=== PATIENT | male | born 1965 | race Caucasian/White ===

== ENCOUNTER 2016-10-27 14:54 | Inpatient (IN) | payer OTHER ==
[~2016-10-27] VITALS: Ht 172.7 cm; Wt 165.9 kg
[2016-10-27] MEDS: CLOBETASOL 0.05% 15 GM OINT TOP SCH (00:45)
[~2016-10-27 14:54] MED LIST: ALBU8.5H3 INH; ASP81 PO; ATOR40TA68 PO; AZIT250T94 PO; CARV12.598 PO; CEPH-443 PO; CLOB15OI15 TOP; FURO40TA4 PO; IPRA4AER INHALATION; LISI40TA9 PO; METF-480 PO; MOME13HF IH; MONT10TA21 PO; MORP30TA3 PO; PRED20TA PO
[2016-10-27] MEDS ORDERED: SODIUM CHLORIDE 0.9% 1L BAG IV* STA (15:19)
[2016-10-27] MEDS ORDERED: CEFEPIME 2GM/50 ML (PMX) 50 ML IVPB STA (15:19)
[2016-10-27] MEDS ORDERED: VANCOMYCIN 1 GM (PMX) 250 ML IVPB ONE (15:30)
--- NOTE | 2016-10-27 15:42 | RADRPT ---
PROCEDURE: CHEST 1VW CLINICAL INDICATION: Shortness of breath TECHNIQUE: Single frontal view of the chest was obtained COMPARISON: 10/12/2016 FINDINGS: The cardiac size is mildly enlarged, stable. Aortic vascular calcifications are demonstrated. There is mild pulmonary vascular congestion. The lungs are otherwise clear. No consolidation, effusion, or pneumothorax. Mild degenerative changes of the visualized osseous structures are visualized. IMPRESSION: 1. Stable mild cardiomegaly. 2. Atherosclerosis. RPTAT:PP .Emmanuel Royal MD, Date Time Electronically viewed and signed by .Emmanuel Royal MD, on 10/27/2016 15:41 .V/
[2016-10-27 15:48] LABS: EOSINOPHILS # 0.1 10^3/ul (0.0-0.5); EOSINOPHILS % 0.6 % (0.0-7.0); HEMOGLOBIN 9.7 g/dl (14.0-18.0); LYMPHOCYTES # 0.5 10^3/ul (0.8-2.9); MEAN CORPUSCULAR HEMOGLOBIN 22.5 pg (29.0-33.0); MEAN CORPUSCULAR HGB CONC 31.1 g/dl (32.0-37.0); MEAN CORPUSCULAR VOLUME 72.3 fl (82.0-101.0); MEAN PLATELET VOLUME 9.8 fl (7.4-10.4); MONOCYTE # 0.7 10^3/ul (0.3-0.9); MONOCYTES % 4.8 % (0.0-11.0); NEUTROPHIL # 12.6 10^3/ul (1.6-7.5); NEUTROPHILS % 90.6 % (39.0-77.0); PLATELET COUNT 130 10^3/UL (140-440); RED BLOOD COUNT 4.29 10^6/ul (4.70-6.10); UNCORRECTED WBC 13.9 10^3/ul (4.8-10.8); WHITE BLOOD COUNT 13.9 10^3/ul (4.8-10.8)
[2016-10-27 15:51] LABS: CONDITION 1; LH ANALYZER COMMENTS 1; SUSPECT 1
[2016-10-27 16:03] LABS: INR 0.97; PROTIME 12.9 Sec (12.2-14.2)
[2016-10-27 16:04] LABS: PARTIAL THROMBOPLASTIN TIME 30.9 Sec (25.0-35.0)
[2016-10-27 16:06] LABS: ALBUMIN 3.4 g/dl (3.3-4.9)
[2016-10-27 16:09] LABS: ALBUMIN/GLOBULIN RATIO 1.13; BILIRUBIN,INDIRECT 0.2 mg/dl (0-1.1); BILIRUBIN,TOTAL 0.2 mg/dl (0.2-1.3); CREATININE 8.6 mg/dl (0.61-1.24); TOTAL PROTEIN 6.4 g/dl (6.1-8.1)
[2016-10-27 16:10] LABS: CALCIUM 8.4 mg/dl (8.4-10.2)
[2016-10-27 16:17] LABS: TROPONIN-I 0.04 ng/ml (0.00-0.12)
--- NOTE | 2016-10-27 17:23 | ERA ---
ER Documentation Chief Complaint Date/Time DATE: 10/27/16 TIME: 17:19 Chief Complaint pt have flu symptoms and hypotension HPI This a 51-year-old male who was recently admitted to the hospital for pneumonia. The patient's been discharged for a week. Patient had a home health nurse come check on him yesterday and told him his blood pressure was low and again today was low as well. The patient states he is no longer coughing or have any pneumonia symptoms. He says he feels generally weak but has had diarrhea daily once or twice for the past 7 days. He has had no diarrhea today. He has no chest pain or shortness of breath or cough. Says he has a slight mid abdominal pain at the end of inspiration at times but not now. No back pain. The patient also says that he was told his kidney function is not good. He says he still making urine but very little. ROS All systems reviewed and are negative except as per history of present illness. Medications Home Meds Active Scripts Albuterol/Ipratropium* (Combivent Respimat*) 20-100 Mcg/Inh - 4 Gm Aer.w.adap, 1 PUFF INHALATION QID, #1 INHALER Prov:SUSY RAHMAN MD 10/13/16 Metformin* (Glucophage*) 850 Mg Tablet, 850 MG PO WITH BREAKFAST DINNE, #60 TAB Prov:SUSY RAHMAN MD 10/13/16 Furosemide* (Furosemide*) 40 Mg Tablet, 40 MG PO BID, #60 TAB Prov:SUSY RAHMAN MD 10/13/16 Carvedilol* (Coreg*) 12.5 Mg Tablet, 12.5 MG PO BID, #60 TAB Prov:SUSY RAMHAN MD 10/13/16 Aspirin (Aspirin) 81 Mg Chew, 81 MG PO DAILY, #30 TAB Prov:SUSY RAHMAN MD 10/13/16 Reported Medications Morphine Sulfate (Morphine Sulfate ER) 30 Mg Tablet.er, 30 MG PO Q4 Y for PRN, TAB 10/05/16 Atorvastatin* (Atorvastatin*) 40 Mg Tablet, 40 MG PO QHS, #30 TAB 10/05/16 Mometasone-Formoterol (Dulera) 200-5 Mcg/Inh - 13 Gm Hfa.aer.ad, 2 PUFFS IH BID Y for SHORTNESS OF BREATH, EA 06/03/15 Albuterol Sulfate* (Proair HFA*) 8.5 Gm Hfa.aer.ad, 2 PUFF INH BID Y for WHEEZING AND SOB, INH 06/03/15 Montelukast Sodium* (Singulair*) 10 Mg Tablet, 10 MG PO HS, TAB 06/03/15 Lisinopril* (Lisinopril*) 40 Mg Tablet, 40 MG PO DAILY, TAB 06/03/15 Clobetasol Propionate* (Clobetasol Propionate*) 15 Gm Oint, 1 APPLIC TOP BID, TUB 06/03/15 Discontinued Scripts Prednisone* (Prednisone*) 20 Mg Tab, 20 MG PO BID, #14 TAB Prov:SUSY RAHMAN MD 10/13/16 Azithromycin* (Zithromax*) 250 Mg Tablet, 250 MG PO DAILY, #6 TAB Prov:SUSY RAHMAN MD 10/13/16 Cephalexin* (Keflex*) 500 Mg Capsule, 500 MG PO Q8, #15 CAP Prov:SUSY RAHMAN MD 10/13/16 Allergies Allergies: Coded Allergies: No Known Allergy (Verified , 10/05/16) PMhx/Soc History of Surgery: Yes (bi-lateral knee surgery) Anesthesia Reaction: No Hx Neurological Disorder: No Hx Respiratory Disorders: Yes (PULOMARY EMBOLISM) Hx Cardiac Disorders: Yes (HTN) Hx Psychiatric Problems: No Hx Miscellaneous Medical Probl: Yes (RENAL FAILURE ) Hx Alcohol Use: No Hx Substance Use: No Hx Tobacco Use: No Smoking Status: Never smoker FmHx Family History: No coronary disease Physical Exam Vitals Vital Signs Date Time Temp Pulse Resp B/P Pulse Ox O2 Delivery O2 Flow Rate FiO2 10/27/16 15:44 93 13 106/82 97 Nasal Cannula 4.0 10/27/16 15:26 Nasal Cannula 4 10/27/16 15:06 98.6 95 20 88/36 88 Physical Exam Const: Well-developed, well-nourished Head: Atraumatic, normocephalic Eyes: Normal Conjunctiva, PERRLA, EOMI, normal sclera, no nystagmus ENT: Normal External Ears, Nose and Mouth, moist mucus membranes. Neck: Full range of motion. No meningismus, no lymphadenopathy. Resp: Clear to auscultation bilaterally, no wheezing, rhonchi, rales Cardio: Regular rate and rhythm, no murmurs, S1 S2 present Abd: Soft, non tender x 4, non distended. Normal bowel sounds, no guarding or rebound, no pulsitile abdominal masses or bruits Skin: No petechiae or rashes, no ecchymosis , no maculopapular rash Back: No midline or flank tenderness Ext: No cyanosis, or edema, FROM x 4, normal inspection, neurovascularly intact x 4 Neur: Awake and alert, STR 5/5 x 4, sensation intact x 4, no focal findings, cerebellum intact Psych: Normal Mood and Affect Result Diagram: 10/27/16 1530 10/27/16 1530 Results 24 hrs Laboratory Tests Test 10/27/16 15:30 Activated Partial Thromboplast Time 30.9Sec Alanine Aminotransferase (ALT/SGPT) 39IU/L Albumin 3.4g/dl Albumin/Globulin Ratio 1.13 Alkaline Phosphatase 79IU/L Anion Gap 21 Aspartate Amino Transf (AST/SGOT) 12IU/L Basophils # 0.010^3/ul Basophils % 0.0% Blood Morphology Comment Blood Urea Nitrogen 102mg/dl Calcium Level 8.4mg/dl Carbon Dioxide Level 28mmol/L Chloride Level 95mmol/L Creatinine 8.60mg/dl Differential Comment AUTO w/SCAN Direct Bilirubin 0.00mg/dl Eosinophils # 0.110^3/ul Eosinophils % 0.6% Globulin 3.00g/dl Glucose Level 160mg/dl Hematocrit 31.0% Hemoglobin 9.7g/dl INR International Normalized Ratio 0.97 Indirect Bilirubin 0.2mg/dl Lactic Acid Level 1.3mmol/L Lymphocytes # 0.510^3/ul Lymphocytes % 4.0% Mean Corpuscular Hemoglobin 22.5pg Mean Corpuscular Hemoglobin Concent 31.1g/dl Mean Corpuscular Volume 72.3fl Mean Platelet Volume 9.8fl Monocytes # 0.710^3/ul Monocytes % 4.8% Neutrophils # 12.610^3/ul Neutrophils % 90.6% Nucleated Red Blood Cells # 0.010^3/ul Nucleated Red Blood Cells % 0.0/100WBC Platelet Count 93106^3/UL Potassium Level 5.0mmol/L Prothrombin Time 12.9Sec Prothrombin Time Ratio 1.0 Red Blood Count 4.2910^6/ul Red Cell Distribution Width 24.0% Sodium Level 139mmol/L Total Bilirubin 0.2mg/dl Total Protein 6.4g/dl Troponin I 0.040ng/ml White Blood Count 13.910^3/ul Current Medications Medications (Trade) Dose Ordered Sig/Yuki Route PRN Reason Start Time Stop Time Status Last Admin Dose Admin Sodium Chloride 5070 ml 5,070 ml BOLUS OVER 2 HOURS STAT IV* 10/27/16 15:19 10/27/16 15:21 DC 10/27/16 15:41 Cefepime HCl 50 ml @ 100 mls/hr ONCE STAT IVPB 10/27/16 15:19 10/27/16 15:48 DC 10/27/16 15:41 Vancomycin HCl (Vancocin) 250 ml @ 125 mls/hr ONCE ONCE IVPB 10/27/16 15:30 10/27/16 17:29 10/27/16 16:29 Procedures/MDM EKG: Rate/Rhythm: Normal sinus rhythm, right axis deviation, artifact QRS, ST, QT: NORMAL DC, QRS, QT] Impression: NORMAL EKG PROCEDURE: CHEST 1VW CLINICAL INDICATION: Shortness of breath TECHNIQUE: Single frontal view of the chest was obtained COMPARISON: 10/12/2016 FINDINGS: The cardiac size is mildly enlarged, stable. Aortic vascular calcifications are demonstrated. There is mild pulmonary vascular congestion. The lungs are otherwise clear. No consolidation, effusion, or pneumothorax. Mild degenerative changes of the visualized osseous structures are visualized. IMPRESSION: 1. Stable mild cardiomegaly. 2. Atherosclerosis. RPTAT:PP .Emmanuel Royal MD, Date Time Electronically viewed and signed by .Emmanuel Royal MD, on 10/27/2016 15:41 .V/ CC: MARC FRYE DO Initial blood pressure is 79/12. Patient was given aggressive IV fluids and current blood pressure is 110/72 Patient was noted to have a creatinine in the low eights currently last creatinine on October 13 was 0.97 Patient is in renal failure of uncertain etiology. No apparent pneumonia. We will admit to the hospital under panel for further workup. Critical Care: Time: 30 minutes Treatments/Evaluations: Close monitoring and treatment of unstable vital signs, cardiorespiratory, and neurologic status, while maintaining tight balance of fluid, respiratory, and cardiac interventions outside of dictated billable procedure. Departure Diagnosis: Primary Impression: Hypotension Qualified Code: I95.9 - Hypotension, unspecified hypotension type Additional Impression: Renal failure Condition: MARC Jett DO Oct 27, 2016 17:23
[2016-10-27] MEDS ORDERED: ONDANSETRON 4 MG INJ IV STA (17:26)
[2016-10-27] MEDS ORDERED: morphine 4 MG/ML VIAL IV STA (17:26)
[2016-10-27] MEDS ORDERED: ONDANSETRON 4 MG INJ IV PRN ×2 (17:30→19:00)
[2016-10-27] MEDS ORDERED: ACETAMINOPHEN 325 MG TAB PO PRN ×2 (17:30→19:00)
[2016-10-27 18:07] LABS: ADD UMIC YES; URINE BILIRUBIN (Dip) 1+ (NEGATIVE); URINE BLOOD (Dip) NEGATIVE (NEGATIVE); URINE COLOR YELLOW (YELLOW); URINE GLUCOSE (Dip) NEGATIVE (NEGATIVE); URINE KETONES (Dip) 15 (NEGATIVE); URINE LEUKOCYTE ESTERASE (Dip) TRACE (NEGATIVE); URINE NITRITE (Dip) NEGATIVE (NEGATIVE); URINE TOTAL PROTEIN (Dip) 4+ (NEGATIVE); URINE UROBILINOGEN (Dip) 0.2 E.U./dL (0.1-1.0)
[2016-10-27 18:26] LABS: ICTOTEST NEGATIVE (NEGATIVE)
[2016-10-27 18:27] LABS: BACTERIA,URINE MODERATE; SQUAMOUS EPITHELIAL CELL,UR MANY
[2016-10-27] MEDS ORDERED: ACETAMINOPHEN 650 MG SUPP PR PRN (19:00)
[2016-10-27] MEDS ORDERED: ALBUTEROL HFA 8 GM INHALER INH PRN (19:00)
[2016-10-27] MEDS ORDERED: NITROGLYCERIN (SL) 0.4 MG TAB SL PRN (19:00)
[2016-10-27] MEDS ORDERED: NACL 0.9% 3 ML SYG IV SCH (19:00)
[2016-10-27] MEDS ORDERED: morphine (ER) 30 MG TAB PO PRN (19:00)
[2016-10-27] MEDS ORDERED: HYDROCODONE/APAP (5/325) TAB PO PRN (19:00)
[2016-10-27] MEDS ORDERED: LORAZEPAM 0.5 MG TAB PO PRN (19:00)
[2016-10-27] MEDS: SOD CHLORIDE 0.9% 1,000 ML IV SCH ×2 (19:28)
[2016-10-27 19:50] LABS: CREATINE KINASE < 20 IU/L (23-200)
[2016-10-27 20:00] LABS: CK-MB 2.65 ng/ml (0.0-2.4); TROPONIN-I 0.039 ng/ml (0.00-0.12)
[2016-10-27] MEDS ORDERED: CEFTRIAXONE 1 GM/50 ML (PMX) 50 ML IVPB SCH (20:00)
--- NOTE | 2016-10-27 20:26 | CONS ---
DATE OF ADMISSION: 10/27/2016 DATE OF CONSULTATION: 10/27/2016 TYPE OF CONSULTATION: Infectious disease. REASON FOR CONSULTATION: Antibiotic management. HISTORY OF PRESENT ILLNESS: Simeon Sanders is a 51-year-old male who comes in with flu like symptoms and hypotension. The patient was recently admitted to the hospital for pneumonia and was discharge d a week ago. The patient was checked by his home health nurse, found to be hypotensive. He no billy len had a cough, but felt generally weak, has had diarrhea daily once or twice in the past 7 days, b ut no diarrhea today. He has some slight mid abdominal pain at the end of inspiration. No back robyn n. His past problems include: 1. History of renal failure. 2. Pulmonary emboli. 3. Hypertension. 4. Bilateral knee surgeries. On admission, his white count was 13.9, H and H of 9.7 and 31, platelet count 130,000. BUN and crea tinine 102/8.6, glucose of 160. PAST MEDICAL HISTORY AND OPERATIONS: As outlined. FAMILY HISTORY: Noncontributory. SOCIAL HISTORY: He does not smoke, drink, or abuse drugs. ALLERGIES: NONE TO PENICILLIN, SULFA, OR FOODS. MEDICATIONS: Per chart. REVIEW OF SYSTEMS: As per HPI. PHYSICAL EXAMINATION: GENERAL: The patient is a well-developed, well-nourished male, alert, responsive, in no acute distr ess. VITAL SIGNS: Stable. He is afebrile. SKIN: Without generalized rash or icterus. HEENT: Within normal limits. NECK: Supple. LYMPH NODES: None palpable. CHEST: Clear to P and A with decreased breath sounds at the bases. HEART: Without murmur or gallop. ABDOMEN: Soft, nontender without organosplenomegaly or masses. EXTREMITIES: Without cyanosis, clubbing, or edema. RECTAL AND GENITAL: Deferred. NEUROLOGIC: No focal neurological abnormality. DIAGNOSTIC DATA: A chest x-ray showed stable mild cardiomegaly and atherosclerosis. Microbiology i s pending. ASSESSMENT AND PLAN: The patient was begun on metronidazole for possible Clostridium difficile and was started on ceftriaxone, on vancomycin. He received vancomycin and cefepime and is currently on ceftriaxone in addition to inhalers. Blood cultures x2 were done. Urine culture was done. Clostri dium difficile was done. It would seem to me that cefepime would be a better choice than ceftriaxon e. I would continue the Flagyl. I will dictate my findings to the hospitalist. Dictated By: NAKIA TABARES MD, JD/RAFAT Conf#: [id number] DID#: [id number]
--- NOTE | 2016-10-27 21:13 | HP ---
DATE OF ADMISSION: 10/27/2016 CONSULTANTS: 1. Infectious Disease. 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 CHIEF COMPLAINT: Intractable nausea, vomiting and weakness. HISTORY OF PRESENT ILLNESS: This is a pleasant 51-year-old gentleman with past medical history of m orbid obesity, respiratory failure, COPD, chronic hypoxemia on home oxygen, essential hypertension w trish was recently admitted to [facility] on 10/05/2016 and was discharged on 016 with home health who has been complaining of having generalized weakness and diarrhea off and on and has been having worsening of his weakness for the past 2 days. Therefore, he presented to [facility] Emergency Room via EMS, where his vital signs were found to be blood pressure 88/36, temperature 98.6, pulse 95, respirations 20, oxygen saturation 88% for which he was placed on 4 L n aman cannula and at this time is 97%, although his renal panel was found to be severely dehydrated w ith BUN of 102, creatinine of 8.60. The patient's WBC was 13.9 although there is no sign of sepsis. His lactic acid is 1.3 and 0.8. His anion gap is 21. Nephrology was consulted from the course of the emergency room. The patient has been treated with 3 L of normal saline in the course of the em ergency room, morphine sulfate, Zofran, vancomycin and cefepime. At this time, the patient denies h aving any chest pain or shortness of breath. He continues to complain of having generalized weaknes s. He states that he has not been able to urinate since this morning, although he has been having o ff-and-on diarrhea. He denies having any fever, but he does have chills. No change in visual acuit y, diplopia, photophobia. No abdominal discomfort, nausea, vomiting. Positive for diarrhea. The d iarrhea is not foul smelling. No rash, no itchiness. No dysuria, hematuria, urgency, incontinence. No neck pain. No restricted range of motion in upper or lower extremities or any sick contact. T he patient states that a home health nurse visited him and he did have a blood test, he does not kno w the result of his blood test, and today because his blood pressure was found to be low, he was sen t to the emergency room at [facility]. PAST MEDICAL AND SURGICAL HISTORY: 1. History of recent hospitalization with hypoxic respiratory failure secondary to pneumonia. 2. Chronic obstructive pulmonary disease. 3. Chronic hypoxemia, home oxygen. 4. Recent diagnosis of acute renal insufficiency which resolved in the previous hospitalization. 5. Essential hypertension. 6. Morbid obesity. 7. Debility secondary to body habitus. 8. Dyslipidemia. 9. Diabetes mellitus. MEDICATIONS AT HOME: 1. ProAir HFA. 2. Combivent. 3. Aspirin 81 mg. 4. Lipitor 40 mg. 5. Carvedilol 12.5 mg. 6. Clobetasol cream. 7. Lasix 40 mg. 8. Lisinopril 40 mg. 9. Metformin 850 mg. 10. Dulera. 11. Singulair. 12. Morphine sulfate. SOCIAL HISTORY: Negative x3 for smoking, alcohol, illicit drugs. He lives at home with his family. FAMILY HISTORY: Noncontributory. REVIEW OF SYSTEMS: As above per HPI. Otherwise, 12 review of systems have been found to be negativ e. PHYSICAL EXAMINATION: VITAL SIGNS: Temperature 98.6, pulse 93, respirations 14. Blood pressure has been ranging between 79/52 to 106/82. Oxygen saturation 99% on 4 L via nasal cannula, which that's his average at home. GENERAL APPEARANCE: The patient is lying in bed comfortably without any distress. He is awake, alfredo rt, oriented. He is not using any accessory muscles for breathing. Body habitus is morbidly obese with BMI of 53.3. EYES, EARS, NOSE, THROAT: Conjunctivae and lids are normal. Pupils are normal. Extraocular normal . Hearing grossly normal. Lips, teeth and gums are normal. Oral mucosa mildly dry. NECK: Supple. Trachea is midline. No lymphadenopathy. RESPIRATORY: Effort is normal. Clear to auscultation bilaterally. CARDIOVASCULAR: Normal S1, S2. Regular rhythm and rate. No murmur, no bruits, no edema. Peripher al pulses, radial pulses are palpable. Capillary refill is normal. CHEST: Normal expansion of thorax during inspiration. GASTROINTESTINAL: Abdomen contour is morbidly obese, soft, nontender, not distended. Bowel sounds are distant secondary to body habitus. GENITOURINARY: Deferred. MUSCULOSKELETAL: Upper and lower extremities within normal limits. Full range of motion. No edema . NEUROLOGIC: Cranial nerves II-XII are grossly intact. PSYCHIATRIC: Normal judgment and insight. Alert, oriented x3. Mood and affect are normal. LABORATORY WORK AND IMAGING: WBC 13.9, hemoglobin 9.7, hematocrit 31.0, MCV 72.3, platelets 130. S odium 139, potassium 5.0, chloride 95, bicarbonate 28, BUN 102, creatinine 8.60, anion gap 21, gluco se 160, calcium 8.4. Lactic acid 1.3. LFTs all within normal limits. Urinalysis: Specific gravit y greater than ____, bilirubin greater than 1, leukocyte esterase trace, squamous epithelial cells m any, total protein greater than 4, bacteria moderate, RBC 10 to 25, WBC 5 to 10. Chest x-ray shows stable mild cardiomegaly, atherosclerosis. The patient's 2D echocardiogram on the previous hospitalization demonstrated normal left ventricle s ystolic function, normal left ventricle cavity size, mild concentric left ventricular hypertrophy, e jection fraction estimated at 60%, stage I diastolic dysfunction, overall normal right ventricular s ystolic function not well visualized, no significant valvular stenosis or regurgitation seen, normal pericardium, no significant pericardial effusion. ASSESSMENT AND PLAN: 1. Acute renal insufficiency. This is likely secondary to dehydration secondary to diarrhea. Neph rology has been consulted. The patient is status post bolus of IV fluid in the course of the emerge ncy room. Cornejo has been ordered to be placed, although patient at this time has refused. I had ex tensive talk with patient regarding Cornejo, and he has at this time agreed to proceed with the Cornejo. We will continue aggressive IV fluid, follow up nephrology recommendations. 2. Intractable diarrhea. Doubtful Clostridium difficile since patient was not sent home with any a ntibiotics. Will place the patient on Flagyl and ciprofloxacin. Will follow up stool culture. 3. Anemia of chronic disease. This may be secondary to renal insufficiency. Follow up iron panel. 4. Leukocytosis. This may be secondary to his diarrhea versus urinary tract infection. Infectious disease doctor has been consulted. The patient has been placed on Flagyl and Rocephin. Will follo w urine culture and sensitivity. 5. History of hypoxic ____. The patient has been placed on oxygen, breathing treatment. 6. Chronic obstructive pulmonary disease, stable on 4 L oxygen. Continue breathing treatment. No indication for steroid at this time. 7. For deep venous thrombosis prophylaxis, will place the patient on sequential compression devices . Refrain from using any pharmacologic DVT prophylaxis secondary to the patient's anemia and platel ets of 130. 8. Severe hypotension. This is likely secondary to severe dehydration. Place the patient on aggre ssive IV fluid and follow. The patient will be admitted to telemetry floor. We will continue to mo nitor patient closely. 9. History of essential hypertension. At this time, patient is hypotensive. We will hold all bloo d pressure medication, and when restarting blood pressure medication, will place on parameters. 10. History of diabetes mellitus. The patient's blood glucose is 160. Will hold metformin seconda ry to acute renal insufficiency, place the patient on insulin sliding scale, low-carbohydrate diet. 11. Will continue to monitor patient closely. Further recommendations, management and treatment as per clinical course. Total amount of time spent for evaluation of patient and admission workup was 40 minutes. Dictated By: SUSY HUTCHINSON/RAFAT Conf#: [id number] DID#: [id number]
[2016-10-27] MEDS ORDERED: NORepinephrine 8MG/250 ML (PMX 250 ML ONE (21:27)
[2016-10-27] MEDS ORDERED: CEFEPIME 1GM/50 ML (PMX) 50 ML IVPB SCH (22:00)
[2016-10-27] MEDS: NORepinephrine 8MG/250 ML (PMX 250 ML IV SCH (22:35)
[2016-10-27] MEDS: metroNIDAZOLE 500 MG/NS (PMX) 100 ML IVPB SCH (22:46)
[2016-10-27] MEDS: ATORVASTATIN 40 MG TAB PO SCH (22:59)
[2016-10-27] MEDS: MONTELUKAST 10 MG TAB PO SCH (22:59)
[2016-10-28] VITALS (23 sets, daily range): BP systolic 79–164; BP diastolic 44–94; PULSE 81–102; RESP 8–15; TEMP 98.4; Ht 172.7 cm; Wt 165.9 kg
[2016-10-28] MEDS: NORepinephrine 8MG/250 ML (PMX 250 ML IV SCH (00:41)
[2016-10-28] MEDS: SOD CHLORIDE 0.9% 1,000 ML IV SCH ×5 (02:19→19:08)
[2016-10-28 04:25] LABS: BASOPHILS % 0.2 % (0.0-2.0); EOSINOPHILS # 0.2 10^3/ul (0.0-0.5); EOSINOPHILS % 1.3 % (0.0-7.0); HEMOGLOBIN 9.7 g/dl (14.0-18.0); LYMPHOCYTES # 1.3 10^3/ul (0.8-2.9); LYMPHOCYTES % 8.9 % (15.0-51.0); MEAN CORPUSCULAR HEMOGLOBIN 22.2 pg (29.0-33.0); MEAN CORPUSCULAR HGB CONC 30.4 g/dl (32.0-37.0); MEAN CORPUSCULAR VOLUME 72.9 fl (82.0-101.0); MEAN PLATELET VOLUME 10.4 fl (7.4-10.4); MONOCYTE # 0.9 10^3/ul (0.3-0.9); MONOCYTES % 6.6 % (0.0-11.0); NEUTROPHIL # 11.9 10^3/ul (1.6-7.5); PLATELET COUNT 148 10^3/UL (140-440); RED BLOOD COUNT 4.39 10^6/ul (4.70-6.10); RED CELL DISTRIBUTION WIDTH 23.8 % (11.5-14.5); UNCORRECTED WBC 14.4 10^3/ul (4.8-10.8); WHITE BLOOD COUNT 14.4 10^3/ul (4.8-10.8)
[2016-10-28 04:28] LABS: CONDITION 1; LH ANALYZER COMMENTS 1
[2016-10-28 04:33] LABS: ALBUMIN 3.3 g/dl (3.3-4.9)
[2016-10-28 04:34] LABS: POTASSIUM 5.8 mmol/L (3.5-5.1)
[2016-10-28 04:36] LABS: BILIRUBIN,INDIRECT 0.2 mg/dl (0-1.1); BILIRUBIN,TOTAL 0.2 mg/dl (0.2-1.3); CREATININE 7.5 mg/dl (0.61-1.24)
[2016-10-28 04:37] LABS: CALCIUM 8.1 mg/dl (8.4-10.2); TOTAL PROTEIN 6.2 g/dl (6.1-8.1)
[2016-10-28 04:38] LABS: MAGNESIUM 2.1 mg/dl (1.7-2.5)
[2016-10-28 04:42] LABS: CREATINE KINASE < 20 IU/L (23-200)
[2016-10-28 04:44] LABS: IRON 86 ug/dl (35-150)
[2016-10-28 04:49] LABS: TROPONIN-I 0.026 ng/ml (0.00-0.12)
[2016-10-28 04:54] LABS: TOTAL IRON BINDING CAPACITY 246 ug/dl (241-421)
[2016-10-28] MEDS: metroNIDAZOLE 500 MG/NS (PMX) 100 ML IVPB SCH ×3 (05:33→21:08)
[2016-10-28 07:04] LABS: TROPONIN-I 0.03 ng/ml (0.00-0.12)
[2016-10-28 07:05] LABS: CK-MB 2.98 ng/ml (0.0-2.4)
[2016-10-28] MEDS: ASPIRIN 81 MG TAB PO SCH (08:21)
[2016-10-28] MEDS: CLOBETASOL 0.05% 15 GM OINT TOP SCH ×2 (09:33→21:08)
--- NOTE | 2016-10-28 10:16 | PN ---
Date/Time of Note Date/Time of Note DATE: 10/28/16 TIME: 10:11 Assessment/Plan VTE Prophylaxis VTE Prophylaxis Intervention: SCD's Assessment/Plan Chief Complaint/Hosp Course ASSESSMENT AND PLAN: 1. Acute renal insufficiency. This is likely secondary to dehydration secondary to diarrhea. Nephrology has been consulted. We will continue aggressive IV fluid, follow up nephrology recommendations. 2. Intractable diarrhea. Resolved, continue Flagyl and Rocephin. Will follow up stool culture. 3. Anemia of chronic disease. This may be secondary to renal insufficiency. Continue to monitor 4. Leukocytosis. This may be secondary to his diarrhea versus urinary tract infection. Infectious disease doctor has been consulted. Continue Flagyl and Rocephin. Will follow urine culture and sensitivity. 5. Sepsis with Severe hypotension. This is likely secondary to severe dehydration.Need of pressors, continue to monitor blood pressure, continue IV antibiotics and aggressive IV fluids 6. Chronic obstructive pulmonary disease, stable on 4 L oxygen. Continue breathing treatment. No indication for steroid at this time. 7. diabetes mellitus. The patient's blood glucose is 160. Will hold metformin secondary to acute renal insufficiency, place the patient on insulin sliding scale, low-carbohydrate diet. 9. History of essential hypertension. At this time, patient is hypotensive. We will hold all blood pressure medication, and when restarting blood pressure medication, will place on parameters. For deep venous thrombosis prophylaxis, will place the patient on sequential compression devices. Refrain from using any pharmacologic DVT prophylaxis secondary to the patient's anemia and platelets of 130. Will continue to monitor patient closely. Further recommendations, management and treatment as per clinical course. Continue to monitor in ICU Problems: Subjective 24 Hr Interval Summary Free Text/Dictation Patient has remained in the ER secondary to lack of ICU beds Denies of any chest pain or shortness of breath Denies of any abdominal discomfort He was placed on levophed secondary to hypotension and his blood pressure is stable at this time Exam/Review of Systems Vital Signs Vitals Vital Signs Date Time Temp Pulse Resp B/P Pulse Ox O2 Delivery O2 Flow Rate FiO2 10/28/16 08:57 98.4 90 14 135/57 98 Nasal Cannula 4.0 10/27/16 20:20 33 Intake and Output 10/27/16 10/27/16 10/28/16 15:00 23:00 07:00 Intake Total 3350 ml 100 ml Balance 3350 ml 100 ml Exam General: The patient is morbidly obese with BMI of 53, Not in acute distress. HEENT: Atraumatic, normocephalic. The pupils are equal and round . Neck: Supple with full range of motion. Chest: Normal expansion of the thorax during inspiration Lungs: Clear to auscultation bilaterally Heart: Normal S1-S2, Regular rhythm and rate. Abdomen: Soft , nontender, nondistended , bowel sounds are present. Extremities: Normal to inspection, no edema no cyanosis Neurologic: Normal mental status,The patient is awake, alert and oriented . Genitourinary: Cornejo in place Results Result Diagram: 10/28/16 0353 10/28/16 0353 Results 24 hrs Laboratory Tests Test 10/27/16 15:30 10/27/16 17:30 10/27/16 17:50 10/27/16 18:25 Activated Partial Thromboplast Time 30.9 Alanine Aminotransferase (ALT/SGPT) 39 Albumin 3.4 Albumin/Globulin Ratio 1.13 Alkaline Phosphatase 79 Anion Gap 21 H Aspartate Amino Transf (AST/SGOT) 12 L Basophils # 0.0 Basophils % 0.0 Blood Morphology Comment Blood Urea Nitrogen 102 H Calcium Level 8.4 Carbon Dioxide Level 28 Chloride Level 95 L Creatinine 8.60 H Differential Comment AUTO w/SCAN Direct Bilirubin 0.00 Eosinophils # 0.1 Eosinophils % 0.6 Globulin 3.00 Glucose Level 160 Hematocrit 31.0 #L Hemoglobin 9.7 #L INR International Normalized Ratio 0.97 Indirect Bilirubin 0.2 Lactic Acid Level 1.3 0.8 0.7 Lymphocytes # 0.5 L Lymphocytes % 4.0 L Mean Corpuscular Hemoglobin 22.5 L Mean Corpuscular Hemoglobin Concent 31.1 L Mean Corpuscular Volume 72.3 L Mean Platelet Volume 9.8 Monocytes # 0.7 Monocytes % 4.8 Neutrophils # 12.6 H Neutrophils % 90.6 H Nucleated Red Blood Cells # 0.0 Nucleated Red Blood Cells % 0.0 Platelet Count 130 #L Potassium Level 5.0 Prothrombin Time 12.9 Prothrombin Time Ratio 1.0 Red Blood Count 4.29 #L Red Cell Distribution Width 24.0 H Sodium Level 139 Total Bilirubin 0.2 Total Protein 6.4 Troponin I 0.040 White Blood Count 13.9 #H Urine Bacteria MODERATE Urine Bilirubin 1+ H Urine Clarity SLIGHTLY CLOUDY Urine Color YELLOW Urine Glucose NEGATIVE Urine Hemoglobin NEGATIVE Urine Ictotest NEGATIVE Urine Ketones 15 Urine Leukocyte Esterase TRACE H Urine Microscopic RBC 10-25 Urine Microscopic WBC 5-10 Urine Nitrite NEGATIVE Urine Specific [place] >=1.030 H Urine Squamous Epithelial Cells MANY Urine Total Protein 4+ H Urine Urobilinogen 0.2 E.U./dL Urine pH 5.0 Test 10/27/16 18:40 10/28/16 03:53 10/28/16 06:10 Creatine Kinase < 20 L < 20 L 21 L Creatine Kinase Index 14.2 Creatinine Kinase MB (Mass) 2.65 H 2.80 H 2.98 H Troponin I 0.039 0.026 0.030 Alanine Aminotransferase (ALT/SGPT) 37 Albumin 3.3 Alkaline Phosphatase 79 Anion Gap 22 H Aspartate Amino Transf (AST/SGOT) 11 L Basophils # 0.0 Basophils % 0.2 Blood Morphology Comment Blood Urea Nitrogen 99 H Calcium Level 8.1 L Carbon Dioxide Level 23 Chloride Level 102 Creatinine 7.50 H Direct Bilirubin 0.00 Eosinophils # 0.2 Eosinophils % 1.3 Ferritin 138.0 Glucose Level 150 Hematocrit 32.0 L Hemoglobin 9.7 L Indirect Bilirubin 0.2 Iron Level 86 Lactic Acid Level 0.7 Lymphocytes # 1.3 Lymphocytes % 8.9 L Magnesium Level 2.1 Mean Corpuscular Hemoglobin 22.2 L Mean Corpuscular Hemoglobin Concent 30.4 L Mean Corpuscular Volume 72.9 L Mean Platelet Volume 10.4 Monocytes # 0.9 Monocytes % 6.6 Neutrophils # 11.9 H Neutrophils % 83.0 H Nucleated Red Blood Cells # 0.0 Nucleated Red Blood Cells % 0.0 Percent Iron Saturation 35 Platelet Count 148 Potassium Level 5.8 H Red Blood Count 4.39 L Red Cell Distribution Width 23.8 H Sodium Level 141 Total Bilirubin 0.2 Total Iron Binding Capacity 246 Total Protein 6.2 White Blood Count 14.4 H Medications Medications Current Medications Sodium Chloride 1,000 ml @ 125 mls/hr Q8H IV Last administered on 10/28/16at 09:33; Admin Dose 125 MLS/HR; Start 10/27/16 at 17:21 Sodium Chloride (NS) 1,000 ml @ 80 mls/hr [id number] IV Last administered on at 08:21; Admin Dose 80 MLS/HR; Start 10/27/16 at 18:46 Lorazepam (Ativan) 0.5 mg Q8H PRN PO ANXIETY; Start 10/27/16 at 19:00 Ondansetron HCl (Zofran Inj) 4 mg Q6H PRN IV NAUSEA AND/OR VOMITING; Start at 19:00 Nitroglycerin (Nitroglycerin (Sl Tab) 0.4 Mg) 1 tab Q5M PRN SL CHEST PAIN; Start 10/27/16 at 19:00 Acetaminophen (Tylenol Tab) 650 mg Q6H PRN PO PAIN LEVEL 1-3 OR FEVER; Start 10/27/16 at 19:00 Acetaminophen (Tylenol Supp) 650 mg Q6H PRN [place] PAIN LEVEL 1-3 OR FEVER; Start 10/27/16 at 19:00 Acetaminophen/ Hydrocodone Bitart 1 tab 1 tab Q6H PRN PO PAIN LEVEL 4-6; Start 10/27/16 at 19:00 Metronidazole (Flagyl 500 Mg (Pmx)) 100 ml @ 100 mls/hr Q8 IVPB Last administered on 10/28/16at 05:33; Admin Dose 100 MLS/HR; Start 10/27/16 at 22: 00 Albuterol (Ventolin Hfa) 2 puff BID PRN INH WHEEZING AND SOB; Start 10/27/16 at 19:00 Aspirin (Aspirin) 81 mg DAILY PO Last administered on 10/28/16at 08:21; Admin Dose 81 MG; Start 10/28/16 at 09:00 Atorvastatin Calcium (Lipitor) 40 mg QHS PO Last administered on 10/27/16at 22: 59; Admin Dose 40 MG; Start 10/27/16 at 21:00 Clobetasol Propionate (Temovate 0.05% Oint) 1 applic BID TOP Last administered on 10/28/16at 09:33; Admin Dose 1 APPLIC; Start 10/27/16 at 21:00 Montelukast Sodium (Singulair) 10 mg HS PO Last administered on 10/27/16at 22: 59; Admin Dose 10 MG; Start 10/27/16 at 21:00 Miscellaneous Information 1 puff QID INHALATION ; Start 10/27/16 at 21:00; Status UNV Miscellaneous Information 2 puffs 2 puffs BID PRN IH SHORTNESS OF BREATH; Start 10/27/16 at 19:00; Status UNV Norepinephrine 250 ml @ 1.875 mls/ hr TITRATE IV Last administered on at 00:41; Admin Dose 26.25 MLS/HR; Start 10/27/16 at 22:00; Stop 10/29/16 at 00:00 Cefepime HCl (Maxipime 1gm/50 ml (Pmx)) 50 ml @ 100 mls/hr Q24H IVPB ; Start 10/28/16 at 16:00 SUSY RAHMAN MD Oct 28, 2016 10:15
[2016-10-28] MEDS: CEFEPIME 1GM/50 ML (PMX) 50 ML IVPB SCH (16:04)
[2016-10-28] MEDS: morphine (ER) 15 MG TAB PO PRN (16:23)
[2016-10-28] MEDS ORDERED: FLUCONAZOLE 200 MG TAB PO ONE (17:30)
--- NOTE | 2016-10-28 17:44 | QN ---
Documentation Comment [id number] consult PEPE WELSH MD Oct 28, 2016 17:44
--- NOTE | 2016-10-28 17:46 | PN ---
DATE: 10/28/2016 SUBJECTIVE: No acute events overnight. The patient is awake on Levophed drip; just a received morp rashmi shot for back pain. He is in no distress; no fevers. Temperature 98.4, pulse 92, respirations 14, blood pressure 92/45, saturation 98 on 4 L. WBC 14.4, H and H 9.7 and 32, platelets 148, neutr ophils 83; no bands. BUN 99, creatinine 7.50. MICROBIOLOGY: Urine culture growing gram-negative rods. Blood cultures remain negative. DIAGNOSTICS: Chest x-ray on admission revealed atherosclerosis. ANTIMICROBIALS Patient is on: 1. Flagyl. 2. Cefepime. PHYSICAL EXAMINATION GENERAL: This is a morbidly obese, middle-aged, man who is awake, in no distress. HEENT: Head atraumatic, normocephalic. Sclerae are anicteric. Buccal mucosa dry. NECK: Obese. CHEST: Rise symmetrical. Breath sounds diminished to bases. HEART: S1, S2. ABDOMEN: Soft, obese. Bowel tones hypoactive. EXTREMITIES: Bilateral edema. SKIN: Difficult to examine patient as he is in emergency bed at the emergency department; however, he has a significant fungal excoriation in his scrotum and possibly skin folds. ASSESSMENT 1. Severe sepsis with shock. 2. Gram-negative rods urinary tract infection. 3. Acute renal failure. 4. Fungal excoriation. 5. Anemia. 6. Morbid obesity. 7. History of coagulase-negative Staphylococcus bacteremia on previous admission, 10/05/2016, as we ll as Enterococcal urinary tract infection. 8. On and off diarrhea. PLAN: The patient is hemodynamically unstable requiring vasopressor support for low blood pressure. He is on cefepime and Flagyl. Pending final urine culture, pending stool for C diff but we will a dd Diflucan and topical nystatin to the regimen. Follow nephrology recommendations. Continue anti- aspiration measures and local wound care. Dictated By: CHEY HUYNH LASTING MACHINE OPERATOR for NAKIA TABARES MD NI/NTS Conf#: [id number] DID#: [id number]
[2016-10-28] MEDS ORDERED: NA POLYST SULFON 15 GM/60 ML BTL PO ONE (18:00)
[2016-10-28] MEDS: ATORVASTATIN 40 MG TAB PO SCH (21:08)
[2016-10-28] MEDS: MONTELUKAST 10 MG TAB PO SCH (21:08)
[2016-10-29] VITALS (64 sets, daily range): BP systolic 74–169; BP diastolic 29–106; PULSE 82–120; RESP 9–20
[2016-10-29 00:25] LABS: AADO2 Arterial 46.9 mmHg (7.0-24.0); Allen Test ACCEPTAB; Arterial Base Excess -3.5 mmol/L (-3.0-3); Arterial COHb 0.1 % (0.0-3.0); Arterial Fraction of Oxyhgb 95.4 % (93.0-99.0); Arterial HCO3 24.9 mmol/L (22.0-26.0); Arterial MetHb 0.2 % (0.0-1.5); Arterial Total Hemglobin 10.5 g/dl (12.0-18.0); Blood Gas IEPAP 20/8; Blood Gas PS 12; MODE MASK - BIPAP
[2016-10-29] MEDS: ALBUTEROL/IPRATROPIUM (NEB) 3 ML AMP HHN SCH ×4 (02:33→19:51)
[2016-10-29] MEDS: SOD CHLORIDE 0.9% 1,000 ML IV SCH ×3 (03:04→21:27)
--- NOTE | 2016-10-29 03:49 | CONS ---
DATE OF ADMISSION: 10/27/2016 DATE OF CONSULTATION: HISTORY OF PRESENT ILLNESS: The patient is a patient is a 51-year-old male, who has a history of hypoxic respiratory failure secondary to pneumonia and also COPD. The patient also has history of hyperkalemia, renal insufficiency, elevated troponin, history of hypertension and morbid obesity. The patient presented with respiratory insufficiency and abnormal laboratory data, and is being admitted for further management. PAST MEDICAL HISTORY: Positive for acute kidney injury, history of status post ventilator-dependent respiratory failure, history of CO2 narcosis, history of asthma, history of previous knee surgery, history of CHF, history of electrolyte imbalance. Patient's previous laboratory data done shows patient has a BUN of 49, creatinine 0.97 on 10/13/2016, now presents with abnormal LFT. ALLERGY HISTORY: NEGATIVE. FAMILY HISTORY: Noncontributory at this point. SOCIAL HISTORY: Cannot be obtained, as the patient is weak and sleepy. MEDICATION HISTORY: At home patient is on: 1. Albuterol. 2. Combivent. 3. Aspirin. 4. Lipitor. 5. Coreg. 6. Clobetasol 7. Lasix. 8. Lisinopril. 9. Metformin. 10. Mometasone 11. Singulair. 12. Morphine. CURRENT MEDICATIONS: Include: 1. Diflucan. 2. Cefepime. 3. Morphine. 4. Flagyl. 5. Norepinephrine 6. Lipitor. 7. Clobetasol. 8. Singulair. REVIEW OF SYSTEMS: Cannot be completely obtained. PHYSICAL EXAMINATION: GENERAL: The patient is an overweight, obese male. VITAL SIGNS: Pulse 82, blood pressure 146/101. HEENT: Head is atraumatic, normocephalic. Pupils equal, reactive to light. NECK: Supple. No JVD. Large neck. LUNGS: Poor respiratory effort, a few rhonchi. CARDIOVASCULAR: S1, S2 normal. ABDOMEN: Soft, obese, bowel sounds present, no palpable mass. EXTREMITIES: No cyanosis, clubbing. The patient has edema noted. DIAGNOSTIC DATA: WBC 14.4, hematocrit , platelet count of 148,000. Sodium 141 , potassium 5.9, BUN 99, creatinine 7.50. The patient had a chest x-ray done, shows stable mild cardiomegaly and atherosclerosis. IMPRESSION: 1. [id number]-[id number] kidney disease. 2. Hyperkalemia, possibly drug induced. 3. Doubt patient has obstructive uropathy. 4. Underlying acute tubular necrosis. 5. Respiratory insufficiency. 6. Patient has intractable diarrhea. 7. Prerenal azotemia. 8. Chronic obstructive pulmonary disease. 9. History of hypertension. 10. Diabetes mellitus. 11. Possible underlying diabetic nephropathy. PLAN: To obtain UA, urine creatinine, eosinophils, and sodium. Patient will have Kayexalate. Patient will have IV fluid. Electrolytes will be monitored. CATA inhibitor will be discontinued, as well as metformin. Thank you, Dr. Cloud, for kindly asking me to see this patient in nephrology consultation. Dictated By: PEPE RAMOS/RAFAT Conf#: [id number] DID#: [id number] MTDD
[2016-10-29 04:59] LABS: EOSINOPHILS # 0.1 10^3/ul (0.0-0.5); EOSINOPHILS % 1.2 % (0.0-7.0); HEMATOCRIT 29.6 % (42.0-52.0); HEMOGLOBIN 9.1 g/dl (14.0-18.0); LYMPHOCYTES # 0.9 10^3/ul (0.8-2.9); LYMPHOCYTES % 10.9 % (15.0-51.0); MEAN CORPUSCULAR HEMOGLOBIN 22.5 pg (29.0-33.0); MEAN CORPUSCULAR VOLUME 72.6 fl (82.0-101.0); MEAN PLATELET VOLUME 9.2 fl (7.4-10.4); MONOCYTES % 12.4 % (0.0-11.0); NEUTROPHIL # 6.3 10^3/ul (1.6-7.5); NEUTROPHILS % 75.5 % (39.0-77.0); PLATELET COUNT 132 10^3/UL (140-440); RED BLOOD COUNT 4.07 10^6/ul (4.70-6.10); RED CELL DISTRIBUTION WIDTH 23.5 % (11.5-14.5); UNCORRECTED WBC 8.4 10^3/ul (4.8-10.8); WHITE BLOOD COUNT 8.4 10^3/ul (4.8-10.8)
[2016-10-29] MEDS: NORepinephrine 8MG/250 ML (PMX 250 ML IV SCH (05:04)
[2016-10-29] MEDS: metroNIDAZOLE 500 MG/NS (PMX) 100 ML IVPB SCH ×3 (05:06→21:26)
[2016-10-29 05:12] LABS: CONDITION 1; LH ANALYZER COMMENTS 1
[2016-10-29 05:46] LABS: POTASSIUM 5.3 mmol/L (3.5-5.1)
[2016-10-29 05:48] LABS: CREATININE 3.23 mg/dl (0.61-1.24)
[2016-10-29 05:49] LABS: CALCIUM 8.7 mg/dl (8.4-10.2)
[2016-10-29 05:50] LABS: MAGNESIUM 1.8 mg/dl (1.7-2.5)
--- NOTE | 2016-10-29 08:46 | PN ---
Date/Time of Note Date/Time of Note DATE: 10/29/16 TIME: 08:41 Assessment/Plan VTE Prophylaxis VTE Prophylaxis Intervention: SCD's Lines/Catheters IV [facility] Type (from [facility] Peripheral IV Urinary Cath still in place: Yes (coude) Reason Cath still needed: other (indicate) (Patient not yet ambulatory remove mobile enough to use routine device) Assessment/Plan Problems: (1) Acute kidney insufficiency Status: Acute Comment: And had an elevated creatinine at the last visit that resolved. He has some issues going on with his kidneys that will need to be further evaluated however he is still in the acute phase now. Once his renal function stabilizes over the next 24-48 hours and we can perform some additional evaluations which will also need to be done for other issues please see the note regarding the adrenal mass (2) Sepsis associated hypotension Status: Acute Comment: With antibiotics is blood pressure parameters are improving is no longer on pressor support and sepsis syndrome is resolving. He had tachycardia hypotension and acute renal insufficiency decreased platelet count etc. (3) Mild diastolic dysfunction Status: Chronic Comment: This is noted and consistent with his morbid obesity and his sleep apnea. (4) Hyperlipidemia Status: Chronic Comment: He is on statin therapy for this at appropriate dosing Qualifiers: Hyperlipidemia type: pure hypercholesterolemia Qualified Code: E78.00 - Pure hypercholesterolemia (5) Essential hypertension Status: Chronic Comment: He is on appropriate treatment for this. (6) COPD with asthma Status: Chronic Comment: He is on his outpatient medical regimen. I am going to add in theophylline to assist with driving his breathing. Ideally weight loss would be beneficial for him however the BMI above 50 he is actually more of a candidate for bariatric surgery at a later date. Please note that his primary care physician is Dr. Annette Vila (7) Obstructive sleep apnea hypopnea, severe Status: Chronic Comment: Counseled to use his device during sleep hours (8) Adrenal mass, right Status: Chronic Comment: This will need a formal evaluation. It was identified in 2015 and has not been evaluated at all. (9) Diabetes mellitus type 2 in obese Status: Chronic (10) Anemia Status: Acute (11) Morbid obesity with BMI of 50.0-59.9, adult Status: Chronic Subjective 24 Hr Interval Summary Free Text/Dictation Patient states he wants to go home. Please note the patient and his daughter confirm that he has been nonambulatory for several weeks Constitutional: no complaints (Denies fevers chills or sweats) Eyes: no complaints ENT: no complaints Respiratory: no complaints (Denies wheezing shortness of breath chest pain) Cardiovascular: no complaints Gastrointestinal: no complaints (Reports no diarrhea although please see the admission notes) Genitourinary: no complaints Musculoskeletal: other (Complains of significant knee pain) Skin: no complaints Exam/Review of Systems Vital Signs Vitals Vital Signs Date Time Temp Pulse Resp B/P Pulse Ox O2 Delivery O2 Flow Rate FiO2 10/29/16 07:45 98 13 110/50 10/29/16 07:00 Nasal Cannula 10/29/16 05:44 95 4.0 10/29/16 04:00 98.7 10/29/16 03:00 30 Intake and Output 10/28/16 10/28/16 10/29/16 15:00 23:00 07:00 Intake Total 629.345 ml 1101.214 ml Output Total 1280 ml 1985 ml Balance -650.655 ml -883.786 ml Exam Morbidly obese male lying in bed not using his CPAP/BiPAP for sleep apnea Constitutional: alert, oriented Neck: non-tender, supple Respiratory: clear to auscultation, normal air movement Cardiovascular: nl pulses, regular rate and rhythm Gastrointestinal: nl liver, spleen, non-tender, soft Results Result Diagram: 10/29/1641910/29/16 0420 Results 24 hrs Laboratory Tests Test 10/28/16 23:40 10/29/16 04:20 Arterial Blood HCO3 24.9 Arterial Blood Base Excess -3.5 L Arterial Blood Oxygen Saturation 95.7 Osmel Test ACCEPTAB Arterial Blood Gas Puncture Site Right Radial Arterial Blood Carboxyhemoglobin 0.1 Arterial Blood Date Drawn 10/29/2016 12:10:54 AM Arterial Blood Methemoglobin 0.2 Arterial Blood pCO2 (Temp correct) 63.3 H Arterial Blood pH (Temp corrected) 7.213 *L Arterial Blood pO2 (Temp corrected) 92.6 Blood Gas A-a O2 Differential 46.9 H Blood Gas Actual Respiration Rate 14 Blood Gas Critical Value Read Back Joyce RIOS RN Blood Gas IPAP/EPAP Ratio 20/8 Blood Gas Modality MASK - BIPAP Blood Gas Notified Time 10/29/2016 12:25:05 AM Blood Gas Notified Whom MG Blood Gas Pressure Support 12 Blood Gas Respiration Rate 14.0 Blood Gas Specimen Source Blood arterial Blood Gas Temperature 37.0 Blood Gas Tidal Volume 540.0 FiO2 30.0 Oxyhemoglobin Percent 95.4 Total Hemoglobin 10.5 L Anion Gap 20 H Basophils # 0.0 Basophils % 0.0 Blood Morphology Comment Blood Urea Nitrogen 87 H Calcium Level 8.7 Carbon Dioxide Level 24 Chloride Level 106 Creatinine 3.23 #H Eosinophils # 0.1 Eosinophils % 1.2 Glucose Level 110 # Hematocrit 29.6 L Hemoglobin 9.1 L Lymphocytes # 0.9 Lymphocytes % 10.9 L Magnesium Level 1.8 Mean Corpuscular Hemoglobin 22.5 L Mean Corpuscular Hemoglobin Concent 31.0 L Mean Corpuscular Volume 72.6 L Mean Platelet Volume 9.2 Monocytes # 1.0 H Monocytes % 12.4 H Neutrophils # 6.3 Neutrophils % 75.5 Nucleated Red Blood Cells # 0.0 Nucleated Red Blood Cells % 0.0 Platelet Count 132 L Potassium Level 5.3 H Red Blood Count 4.07 L Red Cell Distribution Width 23.5 H Sodium Level 145 H White Blood Count 8.4 # Medications Medications Current Medications Sodium Chloride 1,000 ml @ 125 mls/hr Q8H IV Last administered on 10/29/16at 03:04; Admin Dose 125 MLS/HR; Start 10/27/16 at 17:21 Sodium Chloride (NS) 1,000 ml @ 80 mls/hr [id number] IV Last administered on at 19:08; Admin Dose 80 MLS/HR; Start 10/27/16 at 18:46 Lorazepam (Ativan) 0.5 mg Q8H PRN PO ANXIETY; Start 10/27/16 at 19:00 Ondansetron HCl (Zofran Inj) 4 mg Q6H PRN IV NAUSEA AND/OR VOMITING; Start at 19:00 Nitroglycerin (Nitroglycerin (Sl Tab) 0.4 Mg) 1 tab Q5M PRN SL CHEST PAIN; Start 10/27/16 at 19:00 Acetaminophen (Tylenol Tab) 650 mg Q6H PRN PO PAIN LEVEL 1-3 OR FEVER; Start 10/27/16 at 19:00 Acetaminophen (Tylenol Supp) 650 mg Q6H PRN [place] PAIN LEVEL 1-3 OR FEVER; Start 10/27/16 at 19:00 Acetaminophen/ Hydrocodone Bitart 1 tab 1 tab Q6H PRN PO PAIN LEVEL 4-6; Start 10/27/16 at 19:00 Metronidazole (Flagyl 500 Mg (Pmx)) 100 ml @ 100 mls/hr Q8 IVPB Last administered on 10/29/16 05:06; Admin Dose 100 MLS/HR; Start 10/27/16 at 22: 00 Albuterol (Ventolin Hfa) 2 puff BID PRN INH WHEEZING AND SOB; Start 10/27/16 at 19:00 Aspirin (Aspirin) 81 mg DAILY PO Last administered on 10/28/16 08:21; Admin Dose 81 MG; Start 10/28/16 at 09:00 Atorvastatin Calcium (Lipitor) 40 mg QHS PO Last administered on 10/28/16 21: 08; Admin Dose 40 MG; Start 10/27/16 at 21:00 Clobetasol Propionate (Temovate 0.05% Oint) 1 applic BID TOP Last administered on 10/28/16 21:08; Admin Dose 1 APPLIC; Start 10/27/16 at 21:00 Montelukast Sodium (Singulair) 10 mg HS PO Last administered on 10/28/16 21: 08; Admin Dose 10 MG; Start 10/27/16 at 21:00 Miscellaneous Information 1 puff QID INHALATION ; Start 10/27/16 at 21:00; Status UNV Miscellaneous Information 2 puffs 2 puffs BID PRN IH SHORTNESS OF BREATH; Start 10/27/16 at 19:00; Status UNV Cefepime HCl (Maxipime 1gm/50 ml (Pmx)) 50 ml @ 100 mls/hr Q24H IVPB Last administered on 10/28/16 16:04; Admin Dose 100 MLS/HR; Start 10/28/16 at 16: 00 Morphine Sulfate (Ms Contin (Er)) 15 mg BID PRN PO PAIN LEVEL 8-10 Last administered on 10/28/16 16:23; Admin Dose 15 MG; Start 10/28/16 at 16:00 Theophylline (Ethan-24) 200 mg DAILY PO ; Start 10/29/16 at 09:00; Status UNV PRIYANK TEE MD Oct 29, 2016 08:46
[2016-10-29] MEDS: CLOBETASOL 0.05% 15 GM OINT TOP SCH ×2 (09:00→21:26)
[2016-10-29 09:49] LABS: IRON 54 ug/dl (35-150)
[2016-10-29 09:58] LABS: TOTAL IRON BINDING CAPACITY 241 ug/dl (241-421)
[2016-10-29] MEDS ORDERED: SALMETEROL/FLUTICASONE 250/50 INHA INH PRN (10:30)
[2016-10-29] MEDS: ASPIRIN 81 MG TAB PO SCH (13:08)
[2016-10-29] MEDS: THEOPHYLLINE (SR) 200 MG CAPSR PO SCH (13:08)
--- NOTE | 2016-10-29 13:47 | CONS ---
Date/Time of Note Date/Time of Note DATE: 10/29/16 TIME: 13:29 Assessment/Plan Assessment/Plan Chief Complaint/Hosp Course ID PROGRESS NOTE TOTAL ABX DAY #3 : => Cefepime, Flagyl, Diflucan 24H INTERVAL SUMMARY * A/A/O, no fevers, feels much better, off pressors, WBC normalized * Urine culture = low bacterial colony counts Specimen: [id number] Status: Complete Delbert: 10/27/16 Rcvd: 10/27 Source: CATHE[facility] U Sp Descrip: Procedure Result Microbiology URINE CULTURE Final Organism 1 PROTEUS MIRABILIS COLONY COUNT <10,000 CFU/ml P. MIRAB M.I.C. RX --------- --- AMPICILLIN <=2 S CEFOTAXIME S CIPROFLOXACIN <=0.25 S GENTAMICIN <=1 S LEVOFLOXACIN <=0.12 S NITROFURANTOIN 128 R TOBRAMYCIN <=1 S TRIMETHOPRIM/SULFAMETHOXAZOLE <=20 S PHYSICAL EXAMINATION: [id number] yo M HEENT: Unremarkable NECK: Supple, trachea midline. CHEST: Rise symmetrical. HEART: Pulse RRR ABDOMEN: Soft, bowels diminished EXTREMITIES: Warm SKIN: Scrotal cellulitis/fungal ID ASSESSMENT: 51 yo M w/super morbid obesity [BMI >55] admit with: 1. Severe sepsis with shock 2nd 2#2= RESOLVING * No fevers, WBC normalized today 2. Complicated GNR UTI = Proteus Mirabilis, low colony count on culture 3. Acute renal failure. 4. Acute hypoxic respiratory failure ?Obesity hypoventilation syndrome ? => BIPAP PRN 5. s/p HCAP resolving * s/p ETT/Vent recent prior admission * ?Aspiration Pneumonitis without evidence of full-blown PNA 6. Anemia. 7. Diarrhea => intermittent w/norah excoriation 8. Scrotal cellulitis / Fungal excoriation. 9. HTN 10. Right adrenal adenoma, 2.[address] 2014 11. History of coagulase-negative Staphylococcus bacteremia on previous admission, 10/05/2016, as well as Enterococcal urinary tract infection. (-)MRSA Nares Screen = 10/05/16 CURRENT ABX: => Cefepime, Flagyl, Diflucan ID RECOMMENDATIONS/PLAN: 1. Continue ABX -- if stable overnight and BCx remain (-), then DC ABX and observe 2. Topical anti-fungal to norah-scrotal excoriation . Problems: Consultation Date/Type/Reason Admit Date/Time Oct 27, 2016 at 17:21 Initial Consult Date Type of Consultation: ID Exam/Review of Systems Vital Signs Vitals Vital Signs Date Time Temp Pulse Resp B/P Pulse Ox O2 Delivery O2 Flow Rate FiO2 10/29/16 13:15 118 112/70 10/29/16 13:00 18 Nasal Cannula 4.0 10/29/16 12:00 98.4 10/29/16 08:53 98 36 Intake and Output 10/28/16 10/28/16 10/29/16 15:00 23:00 07:00 Intake Total 629.345 ml 1101.214 ml Output Total 1280 ml 1985 ml Balance -650.655 ml -883.786 ml Results Result Diagram: 10/29/16 0420 10/29/16 0420 Results 24 hrs Laboratory Tests Test 10/28/16 23:40 10/29/16 04:20 10/29/16 09:25 Arterial Blood HCO3 24.9 Arterial Blood Base Excess -3.5 L Arterial Blood Oxygen Saturation 95.7 Osmel Test ACCEPTAB Arterial Blood Gas Puncture Site Right Radial Arterial Blood Carboxyhemoglobin 0.1 Arterial Blood Date Drawn 10/29/2016 12:10:54 AM Arterial Blood Methemoglobin 0.2 Arterial Blood pCO2 (Temp correct) 63.3 H Arterial Blood pH (Temp corrected) 7.213 *L Arterial Blood pO2 (Temp corrected) 92.6 Blood Gas A-a O2 Differential 46.9 H Blood Gas Actual Respiration Rate 14 Blood Gas Critical Value Read Back Joyce RIOS RN Blood Gas IPAP/EPAP Ratio 20/8 Blood Gas Modality MASK - BIPAP Blood Gas Notified Time 10/29/2016 12:25:05 AM Blood Gas Notified Whom MG Blood Gas Pressure Support 12 Blood Gas Respiration Rate 14.0 Blood Gas Specimen Source Blood arterial Blood Gas Temperature 37.0 Blood Gas Tidal Volume 540.0 FiO2 30.0 Oxyhemoglobin Percent 95.4 Total Hemoglobin 10.5 L Anion Gap 20 H Basophils # 0.0 Basophils % 0.0 Blood Morphology Comment Blood Urea Nitrogen 87 H Calcium Level 8.7 Carbon Dioxide Level 24 Chloride Level 106 Creatinine 3.23 #H Eosinophils # 0.1 Eosinophils % 1.2 Glucose Level 110 # Hematocrit 29.6 L Hemoglobin 9.1 L Lymphocytes # 0.9 Lymphocytes % 10.9 L Magnesium Level 1.8 Mean Corpuscular Hemoglobin 22.5 L Mean Corpuscular Hemoglobin Concent 31.0 L Mean Corpuscular Volume 72.6 L Mean Platelet Volume 9.2 Monocytes # 1.0 H Monocytes % 12.4 H Neutrophils # 6.3 Neutrophils % 75.5 Nucleated Red Blood Cells # 0.0 Nucleated Red Blood Cells % 0.0 Platelet Count 132 L Potassium Level 5.3 H Red Blood Count 4.07 L Red Cell Distribution Width 23.5 H Sodium Level 145 H White Blood Count 8.4 # Ferritin 130.0 Hepatitis B Surface Antigen NEGATIVE Hepatitis C Antibody NEGATIVE Iron Level 54 Percent Iron Saturation 22 Total Iron Binding Capacity 241 Medications Medications Current Medications Sodium Chloride (NS) 1,000 ml @ 80 mls/hr [id number] IV Last administered on at 09:00; Admin Dose 80 MLS/HR; Start 10/27/16 at 18:46 Lorazepam (Ativan) 0.5 mg Q8H PRN PO ANXIETY; Start 10/27/16 at 19:00 Ondansetron HCl (Zofran Inj) 4 mg Q6H PRN IV NAUSEA AND/OR VOMITING; Start at 19:00 Nitroglycerin (Nitroglycerin (Sl Tab) 0.4 Mg) 1 tab Q5M PRN SL CHEST PAIN; Start 10/27/16 at 19:00 Acetaminophen (Tylenol Tab) 650 mg Q6H PRN PO PAIN LEVEL 1-3 OR FEVER; Start 10/27/16 at 19:00 Acetaminophen (Tylenol Supp) [address] PAIN LEVEL 1-3 OR FEVER; Start 10/27/16 at 19:00 Acetaminophen/ Hydrocodone Bitart 1 tab 1 tab Q6H PRN PO PAIN LEVEL 4-6; Start 10/27/16 at 19:00 Metronidazole (Flagyl 500 Mg (Pmx)) 100 ml @ 100 mls/hr Q8 IVPB Last administered on 10/29/16at 13:08; Admin Dose 100 MLS/HR; Start 10/27/16 at 22: 00 Albuterol (Ventolin Hfa) 2 puff BID PRN INH WHEEZING AND SOB; Start 10/27/16 at 19:00 Aspirin (Aspirin) 81 mg DAILY PO Last administered on 10/29/16at 13:08; Admin Dose 81 MG; Start 10/28/16 at 09:00 Atorvastatin Calcium (Lipitor) 40 mg QHS PO Last administered on 10/28/16at 21: 08; Admin Dose 40 MG; Start 10/27/16 at 21:00 Clobetasol Propionate (Temovate 0.05% Oint) 1 applic BID TOP Last administered on 10/29/16at 09:00; Admin Dose 1 APPLIC; Start 10/27/16 at 21:00 Montelukast Sodium (Singulair) 10 mg HS PO Last administered on 10/28/16at 21: 08; Admin Dose 10 MG; Start 10/27/16 at 21:00 Salmeterol Xinafoate/ Fluticasone 1 inh 1 inh BID PRN INH SHORTNESS OF BREATH; Start 10/29/16 at 10:30 Cefepime HCl (Maxipime 1gm/50 ml (Pmx)) 50 ml @ 100 mls/hr Q24H IVPB Last administered on 10/28/16at 16:04; Admin Dose 100 MLS/HR; Start 10/28/16 at 16: 00 Morphine Sulfate (Ms Contin (Er)) 15 mg BID PRN PO PAIN LEVEL 8-10 Last administered on 10/28/16at 16:23; Admin Dose 15 MG; Start 10/28/16 at 16:00 Theophylline (Ethan-24) 200 mg DAILY PO Last administered on 10/29/16at 13:08; Admin Dose 200 MG; Start 10/29/16 at 09:00 COLBY RODRIGUEZ NP Oct 29, 2016 13:40
[2016-10-29] MEDS ORDERED: NA POLYST SULFON 15 GM/60 ML BTL PO ONE (14:00)
--- NOTE | 2016-10-29 15:30 | CONS ---
Date/Time of Note Date/Time of Note DATE: 10/29/16 TIME: 15:29 Assessment/Plan Assessment/Plan Chief Complaint/Hosp Course IMPRESSION: 1. [id number] kidney disease. 2. Hyperkalemia, possibly drug induced. 3. Doubt patient has obstructive uropathy. 4. Underlying acute tubular necrosis. 5. Respiratory insufficiency. 6. Patient has intractable diarrhea. 7. Prerenal azotemia. 8. Chronic obstructive pulmonary disease. 9. History of hypertension. 10. Diabetes mellitus. 11. Possible underlying diabetic nephropathy. plan kayexalate Problems: Consultation Date/Type/Reason Admit Date/Time Oct 27, 2016 at 17:21 Initial Consult Date Type of Consultation: renal 24 HR Interval Summary Constitutional: other (sob better) Exam/Review of Systems Vital Signs Vitals Vital Signs Date Time Temp Pulse Resp B/P Pulse Ox O2 Delivery O2 Flow Rate FiO2 10/29/16 14:07 107 14 98 Nasal Cannula 4.0 36 10/29/16 13:15 112/70 10/29/16 12:00 98.4 Intake and Output 10/28/16 10/28/16 10/29/16 15:00 23:00 07:00 Intake Total 629.345 ml 1101.214 ml Output Total 1280 ml 1985 ml Balance -650.655 ml -883.786 ml Exam Neck: supple Respiratory: clear to auscultation Cardiovascular: regular rate and rhythm Gastrointestinal: soft Extremities: edema (+) Results Result Diagram: 10/29/16 0420 10/29/16 0420 Results 24 hrs Laboratory Tests Test 10/28/16 23:40 10/29/16 04:20 10/29/16 09:25 Arterial Blood HCO3 24.9 Arterial Blood Base Excess -3.5 L Arterial Blood Oxygen Saturation 95.7 Osmel Test ACCEPTAB Arterial Blood Gas Puncture Site Right Radial Arterial Blood Carboxyhemoglobin 0.1 Arterial Blood Date Drawn 10/29/2016 12:10:54 AM Arterial Blood Methemoglobin 0.2 Arterial Blood pCO2 (Temp correct) 63.3 H Arterial Blood pH (Temp corrected) 7.213 *L Arterial Blood pO2 (Temp corrected) 92.6 Blood Gas A-a O2 Differential 46.9 H Blood Gas Actual Respiration Rate 14 Blood Gas Critical Value Read Back Joyce RIOS RN Blood Gas IPAP/EPAP Ratio 20/8 Blood Gas Modality MASK - BIPAP Blood Gas Notified Time 10/29/2016 12:25:05 AM Blood Gas Notified Whom MG Blood Gas Pressure Support 12 Blood Gas Respiration Rate 14.0 Blood Gas Specimen Source Blood arterial Blood Gas Temperature 37.0 Blood Gas Tidal Volume 540.0 FiO2 30.0 Oxyhemoglobin Percent 95.4 Total Hemoglobin 10.5 L Anion Gap 20 H Basophils # 0.0 Basophils % 0.0 Blood Morphology Comment Blood Urea Nitrogen 87 H Calcium Level 8.7 Carbon Dioxide Level 24 Chloride Level 106 Creatinine 3.23 #H Eosinophils # 0.1 Eosinophils % 1.2 Glucose Level 110 # Hematocrit 29.6 L Hemoglobin 9.1 L Lymphocytes # 0.9 Lymphocytes % 10.9 L Magnesium Level 1.8 Mean Corpuscular Hemoglobin 22.5 L Mean Corpuscular Hemoglobin Concent 31.0 L Mean Corpuscular Volume 72.6 L Mean Platelet Volume 9.2 Monocytes # 1.0 H Monocytes % 12.4 H Neutrophils # 6.3 Neutrophils % 75.5 Nucleated Red Blood Cells # 0.0 Nucleated Red Blood Cells % 0.0 Platelet Count 132 L Potassium Level 5.3 H Red Blood Count 4.07 L Red Cell Distribution Width 23.5 H Sodium Level 145 H White Blood Count 8.4 # Ferritin 130.0 Hepatitis B Surface Antibody NEGATIVE Hepatitis B Surface Antigen NEGATIVE Hepatitis C Antibody NEGATIVE Iron Level 54 Percent Iron Saturation 22 Total Iron Binding Capacity 241 Medications Medications Current Medications Sodium Chloride (NS) 1,000 ml @ 80 mls/hr [id number] IV Last administered on at 09:00; Admin Dose 80 MLS/HR; Start 10/27/16 at 18:46 Lorazepam (Ativan) 0.5 mg Q8H PRN PO ANXIETY; Start 10/27/16 at 19:00 Ondansetron HCl (Zofran Inj) 4 mg Q6H PRN IV NAUSEA AND/OR VOMITING; Start at 19:00 Nitroglycerin (Nitroglycerin (Sl Tab) 0.4 Mg) 1 tab Q5M PRN SL CHEST PAIN; Start 10/27/16 at 19:00 Acetaminophen (Tylenol Tab) 650 mg Q6H PRN PO PAIN LEVEL 1-3 OR FEVER; Start 10/27/16 at 19:00 Acetaminophen (Tylenol Supp) [address] PAIN LEVEL 1-3 OR FEVER; Start 10/27/16 at 19:00 Acetaminophen/ Hydrocodone Bitart 1 tab 1 tab Q6H PRN PO PAIN LEVEL 4-6; Start 10/27/16 at 19:00 Metronidazole (Flagyl 500 Mg (Pmx)) 100 ml @ 100 mls/hr Q8 IVPB Last administered on 10/29/16 13:08; Admin Dose 100 MLS/HR; Start 10/27/16 at 22: 00 Albuterol (Ventolin Hfa) 2 puff BID PRN INH WHEEZING AND SOB; Start 10/27/16 at 19:00 Aspirin (Aspirin) 81 mg DAILY PO Last administered on 10/29/16 13:08; Admin Dose 81 MG; Start 10/28/16 at 09:00 Atorvastatin Calcium (Lipitor) 40 mg QHS PO Last administered on 10/28/16 21: 08; Admin Dose 40 MG; Start 10/27/16 at 21:00 Clobetasol Propionate (Temovate 0.05% Oint) 1 applic BID TOP Last administered on 10/29/16 09:00; Admin Dose 1 APPLIC; Start 10/27/16 at 21:00 Montelukast Sodium (Singulair) 10 mg HS PO Last administered on 10/28/16 21: 08; Admin Dose 10 MG; Start 10/27/16 at 21:00 Salmeterol Xinafoate/ Fluticasone 1 inh 1 inh BID PRN INH SHORTNESS OF BREATH; Start 10/29/16 at 10:30 Cefepime HCl (Maxipime 1gm/50 ml (Pmx)) 50 ml @ 100 mls/hr Q24H IVPB Last administered on 10/28/16 16:04; Admin Dose 100 MLS/HR; Start 10/28/16 at 16: 00 Morphine Sulfate (Ms Contin (Er)) 15 mg BID PRN PO PAIN LEVEL 8-10 Last administered on 10/28/16 16:23; Admin Dose 15 MG; Start 10/28/16 at 16:00 Theophylline (Ethan-24) 200 mg DAILY PO Last administered on 10/29/16 13:08; Admin Dose 200 MG; Start 10/29/16 at 09:00 PEPE WELSH MD Oct 29, 2016 15:29
[2016-10-29] MEDS: CEFEPIME 1GM/50 ML (PMX) 50 ML IVPB SCH (16:00)
[2016-10-29] MEDS: ATORVASTATIN 40 MG TAB PO SCH (21:26)
[2016-10-29] MEDS: MONTELUKAST 10 MG TAB PO SCH (21:26)
[2016-10-30] VITALS (23 sets, daily range): BP systolic 93–177; BP diastolic 64–101; PULSE 97–128; RESP 14–24
[2016-10-30] MEDS: ALBUTEROL/IPRATROPIUM (NEB) 3 ML AMP HHN SCH ×5 (02:14→23:27)
[2016-10-30 05:03] LABS: POTASSIUM 4.4 mmol/L (3.5-5.1)
[2016-10-30 05:05] LABS: CREATININE 1.05 mg/dl (0.61-1.24)
[2016-10-30 05:06] LABS: CALCIUM 9.2 mg/dl (8.4-10.2)
[2016-10-30 05:07] LABS: MAGNESIUM 1.7 mg/dl (1.7-2.5)
[2016-10-30 05:40] LABS: EOSINOPHILS # 0.1 10^3/ul (0.0-0.5); EOSINOPHILS % 1.8 % (0.0-7.0); HEMOGLOBIN 9.5 g/dl (14.0-18.0); LYMPHOCYTES # 0.7 10^3/ul (0.8-2.9); LYMPHOCYTES % 8.6 % (15.0-51.0); MEAN CORPUSCULAR HEMOGLOBIN 22.3 pg (29.0-33.0); MEAN CORPUSCULAR HGB CONC 30.5 g/dl (32.0-37.0); MEAN CORPUSCULAR VOLUME 73.1 fl (82.0-101.0); MEAN PLATELET VOLUME 10.4 fl (7.4-10.4); MONOCYTES % 12.7 % (0.0-11.0); NEUTROPHIL # 5.9 10^3/ul (1.6-7.5); NEUTROPHILS % 76.9 % (39.0-77.0); PLATELET COUNT 163 10^3/UL (140-440); RED BLOOD COUNT 4.24 10^6/ul (4.70-6.10); RED CELL DISTRIBUTION WIDTH 25.3 % (11.5-14.5); UNCORRECTED WBC 7.7 10^3/ul (4.8-10.8); WHITE BLOOD COUNT 7.7 10^3/ul (4.8-10.8)
[2016-10-30] MEDS: metroNIDAZOLE 500 MG/NS (PMX) 100 ML IVPB SCH ×3 (05:50→23:02)
[2016-10-30 06:23] LABS: CONDITION 1; LH ANALYZER COMMENTS 1; SUSPECT 1
[2016-10-30] MEDS: NON-FORMULARY/PATIENT OWN MED (Albuterol/Ipratropium* (Combivent Respimat*) 1 PUFF) INHALATION SCH ×2 (07:21→07:22)
--- NOTE | 2016-10-30 08:17 | PN ---
Date/Time of Note Date/Time of Note DATE: 10/30/16 TIME: 08:12 Assessment/Plan VTE Prophylaxis VTE Prophylaxis Intervention: other Lines/Catheters IV [facility] Urinary Cath still in place: Yes Reason Cath still needed: other (indicate) (Collect urine for 24 hour urine studies) Assessment/Plan Problems: (1) Acute kidney insufficiency Status: Acute Comment: This is significantly improved. Was on 100% resolved he is coming down to baseline. At some point he will need to have an CATA inhibitor or an H2 receptor nir drug added back into his regimen. Please note with a rising blood pressure and the adrenal mass he will need a 24-hour urine for catecholamines. (2) Diabetes mellitus type 2 in obese Status: Chronic Comment: Stable control (3) Adrenal mass, right Status: Chronic Comment: He will need to have a formalized workup for this which will include 20 for urinary catecholamines which should be done as an outpatient since he is recently been on pressors; and 24-hour urinary free cortisol. The reason I am not doing the overnight dexamethasone suppression test is in a patient with his sleep apnea or possibly could have false positive test (4) Obstructive sleep apnea hypopnea, severe Status: Chronic Comment: He has been re-counseled about wearing his BiPAP overnight (5) Essential hypertension Status: Chronic Comment: His blood pressures up and going to add in an alpha blocking agent. All these are relatively weak antihypertensive agents if the source of his blood pressure is this adrenal mass this would actually be the drug of choice (6) COPD with asthma Status: Chronic Comment: He is stable and doing better (7) Morbid obesity with BMI of 50.0-59.9, adult Status: Chronic Comment: Re-counseled again (8) Sepsis associated hypotension Status: Resolved Comment: Resolved Subjective 24 Hr Interval Summary Free Text/Dictation Patient lying in bed stating I want to go home. Constitutional: no complaints Respiratory: no complaints Cardiovascular: no complaints Gastrointestinal: no complaints Genitourinary: no complaints Exam/Review of Systems Vital Signs Vitals Vital Signs Date Time Temp Pulse Resp B/P Pulse Ox O2 Delivery O2 Flow Rate FiO2 10/30/16 07:00 115 22 165/101 Nasal Cannula 10/30/16 06:00 4.0 10/30/16 04:00 98.5 10/30/16 02:12 95 30 Intake and Output 10/29/16 10/29/16 10/30/16 15:00 23:00 07:00 Intake Total 1291 ml 1190 ml 1160 ml Output Total 2225 ml 1525 ml 1140 ml Balance -934 ml -335 ml 20 ml Exam Constitutional: alert, oriented Neck: non-tender, supple Respiratory: clear to auscultation, normal air movement Cardiovascular: nl pulses, regular rate and rhythm Gastrointestinal: nl liver, spleen, non-tender, soft Results Result Diagram: 10/30/1642110/30/16 0422 Results 24 hrs Laboratory Tests Test 10/29/16 09:25 10/30/16 04:22 Ferritin 130.0 Hepatitis B Surface Antibody NEGATIVE Hepatitis B Surface Antigen NEGATIVE Hepatitis C Antibody NEGATIVE Iron Level 54 Percent Iron Saturation 22 Total Iron Binding Capacity 241 Anion Gap 16 Basophils # 0.0 Basophils % 0.0 Blood Morphology Comment Blood Urea Nitrogen 51 #H Calcium Level 9.2 Carbon Dioxide Level 30 Chloride Level 108 Creatinine 1.05 # Eosinophils # 0.1 Eosinophils % 1.8 Glucose Level 126 Hematocrit 31.0 L Hemoglobin 9.5 L Lymphocytes # 0.7 L Lymphocytes % 8.6 L Magnesium Level 1.7 Mean Corpuscular Hemoglobin 22.3 L Mean Corpuscular Hemoglobin Concent 30.5 L Mean Corpuscular Volume 73.1 L Mean Platelet Volume 10.4 Monocytes # 1.0 H Monocytes % 12.7 H Neutrophils # 5.9 Neutrophils % 76.9 Nucleated Red Blood Cells # 0.0 Nucleated Red Blood Cells % 0.0 Platelet Count 163 # Potassium Level 4.4 Red Blood Count 4.24 L Red Cell Distribution Width 25.3 H Sodium Level 150 H White Blood Count 7.7 Medications Medications Current Medications Sodium Chloride (NS) 1,000 ml @ 80 mls/hr [id number] IV Last administered on at 21:27; Admin Dose 80 MLS/HR; Start 10/27/16 at 18:46 Lorazepam (Ativan) 0.5 mg Q8H PRN PO ANXIETY; Start 10/27/16 at 19:00 Ondansetron HCl (Zofran Inj) 4 mg Q6H PRN IV NAUSEA AND/OR VOMITING; Start at 19:00 Nitroglycerin (Nitroglycerin (Sl Tab) 0.4 Mg) 1 tab Q5M PRN SL CHEST PAIN; Start 10/27/16 at 19:00 Acetaminophen (Tylenol Tab) 650 mg Q6H PRN PO PAIN LEVEL 1-3 OR FEVER; Start 10/27/16 at 19:00 Acetaminophen (Tylenol Supp) 650 mg Q6H PRN [place] PAIN LEVEL 1-3 OR FEVER; Start 10/27/16 at 19:00 Acetaminophen/ Hydrocodone Bitart 1 tab 1 tab Q6H PRN PO PAIN LEVEL 4-6; Start 10/27/16 at 19:00 Metronidazole (Flagyl 500 Mg (Pmx)) 100 ml @ 100 mls/hr Q8 IVPB Last administered on 10/30/16t 05:50; Admin Dose 100 MLS/HR; Start 10/27/16 at 22:00 Albuterol (Ventolin Hfa) 2 puff BID PRN INH WHEEZING AND SOB; Start 10/27/16 at 19:00 Aspirin (Aspirin) 81 mg DAILY PO Last administered on 10/29/16at 13:08; Admin Dose 81 MG; Start 10/28/16 at 09:00 Atorvastatin Calcium (Lipitor) 40 mg QHS PO Last administered on 10/29/16at 21: 26; Admin Dose 40 MG; Start 10/27/16 at 21:00 Clobetasol Propionate (Temovate 0.05% Oint) 1 applic BID TOP Last administered on 10/29/16at 21:26; Admin Dose 1 APPLIC; Start 10/27/16 at 21:00 Montelukast Sodium (Singulair) 10 mg HS PO Last administered on 10/29/16at 21: 26; Admin Dose 10 MG; Start 10/27/16 at 21:00 Salmeterol Xinafoate/ Fluticasone 1 inh 1 inh BID PRN INH SHORTNESS OF BREATH; Start 10/29/16 at 10:30 Cefepime HCl (Maxipime 1gm/50 ml (Pmx)) 50 ml @ 100 mls/hr Q24H IVPB Last administered on 10/29/16at 16:00; Admin Dose 100 MLS/HR; Start 10/28/16 at 16: 00 Morphine Sulfate (Ms Contin (Er)) 15 mg BID PRN PO PAIN LEVEL 8-10 Last administered on 10/28/16at 16:23; Admin Dose 15 MG; Start 10/28/16 at 16:00 Theophylline (Ethan-24) 200 mg DAILY PO Last administered on 10/29/16at 13:08; Admin Dose 200 MG; Start 10/29/16 at 09:00 Doxazosin Mesylate (Cardura) 1 mg ONCE ONCE PO ; Start 10/30/16 at 08:30; Stop 10/30/16 at 08:31; Status UNV Doxazosin Mesylate (Cardura) 2 mg HS PO ; Start 10/30/16 at 21:00; Status UNV PRIYANK TEE MD Oct 30, 2016 08:16
[2016-10-30] MEDS ORDERED: DOXAZOSIN 1 MG TAB PO ONE (08:30)
[2016-10-30] MEDS: SOD CHLORIDE 0.9% 1,000 ML IV SCH (09:16)
[2016-10-30] MEDS: ASPIRIN 81 MG TAB PO SCH (10:48)
[2016-10-30] MEDS: THEOPHYLLINE (SR) 200 MG CAPSR PO SCH (10:48)
[2016-10-30] MEDS: CLOBETASOL 0.05% 15 GM OINT TOP SCH ×2 (10:49→21:00)
--- NOTE | 2016-10-30 11:08 | CONS ---
Date/Time of Note Date/Time of Note DATE: 10/30/16 TIME: 11:01 Assessment/Plan Assessment/Plan Chief Complaint/Hosp Course ID PROGRESS NOTE TOTAL ABX DAY #4 : => Cefepime, Flagyl, Diflucan 24H INTERVAL SUMMARY * Overall status improved, no fevers, WBC normalized * Renal function improved today PHYSICAL EXAMINATION: [id number] yo M HEENT: Unremarkable NECK: Supple, trachea midline. CHEST: Rise symmetrical. HEART: Pulse RRR ABDOMEN: Soft, bowels diminished EXTREMITIES: Warm SKIN: Scrotal cellulitis/fungal ID ASSESSMENT: 51 yo M w/super morbid obesity [BMI >55] admit with: 1. Severe sepsis with shock 2nd 2#2= RESOLVING * No fevers, WBC normalized 2. Complicated GNR UTI = Proteus Mirabilis, low colony count on culture 3. Acute renal failure. 4. Acute hypoxic respiratory failure = RESOLVING 5. OMEGA w/Obesity hypoventilation syndrome => nocturnal BIPAP PRN 5. s/p HCAP onset prior admission = RESOLVING * s/p ETT/Vent recent prior admission * (+)Risk factors for silent Aspiration syndrome = Morbid obese, GERD, BIPAP = suspect Aspiration Pneumonitis without evidence of full-blown PNA 6. Anemia. 7. Diarrhea => intermittent w/norah excoriation 8. Scrotal cellulitis / Fungal excoriation. 9. HTN 10. Right adrenal adenoma, 2.[address] 2014 11. History of coagulase-negative Staphylococcus bacteremia on previous admission, 10/05/2016, as well as Enterococcal urinary tract infection. (-)MRSA Nares Screen = 10/05/16 CURRENT ABX: => Cefepime, Flagyl, Diflucan ID RECOMMENDATIONS/PLAN: 1. Continue ABX -- if stable overnight, no evidence ASP PNA and BCx remain (-), then DC Cefepime and observe 2. Topical anti-fungal to norah-scrotal excoriation . Problems: Consultation Date/Type/Reason Admit Date/Time Oct 27, 2016 at 17:21 Type of Consultation: ID Exam/Review of Systems Vital Signs Vitals Vital Signs Date Time Temp Pulse Resp B/P Pulse Ox O2 Delivery O2 Flow Rate FiO2 10/30/16 08:26 112 18 96 Nasal Cannula 4.0 10/30/16 07:00 165/101 1/1/17 04:00 98.5 10/30/16 02:12 30 Intake and Output 10/29/16 10/29/16 10/30/16 15:00 23:00 07:00 Intake Total 1291 ml 1190 ml 1160 ml Output Total 2225 ml 1525 ml 1140 ml Balance -934 ml -335 ml 20 ml Results Result Diagram: 10/30/16 0422 10/30/16 0422 Results 24 hrs Laboratory Tests Test 10/30/16 04:22 Anion Gap 16 Basophils # 0.0 Basophils % 0.0 Blood Morphology Comment Blood Urea Nitrogen 51 #H Calcium Level 9.2 Carbon Dioxide Level 30 Chloride Level 108 Creatinine 1.05 # Eosinophils # 0.1 Eosinophils % 1.8 Glucose Level 126 Hematocrit 31.0 L Hemoglobin 9.5 L Lymphocytes # 0.7 L Lymphocytes % 8.6 L Magnesium Level 1.7 Mean Corpuscular Hemoglobin 22.3 L Mean Corpuscular Hemoglobin Concent 30.5 L Mean Corpuscular Volume 73.1 L Mean Platelet Volume 10.4 Monocytes # 1.0 H Monocytes % 12.7 H Neutrophils # 5.9 Neutrophils % 76.9 Nucleated Red Blood Cells # 0.0 Nucleated Red Blood Cells % 0.0 Platelet Count 163 # Potassium Level 4.4 Red Blood Count 4.24 L Red Cell Distribution Width 25.3 H Sodium Level 150 H White Blood Count 7.7 Medications Medications Current Medications Sodium Chloride (NS) 1,000 ml @ 80 mls/hr [id number] IV Last administered on at 21:27; Admin Dose 80 MLS/HR; Start 10/27/16 at 18:46 Lorazepam (Ativan) 0.5 mg Q8H PRN PO ANXIETY; Start 10/27/16 at 19:00 Ondansetron HCl (Zofran Inj) 4 mg Q6H PRN IV NAUSEA AND/OR VOMITING; Start at 19:00 Nitroglycerin (Nitroglycerin (Sl Tab) 0.4 Mg) 1 tab Q5M PRN SL CHEST PAIN; Start 10/27/16 at 19:00 Acetaminophen (Tylenol Tab) 650 mg Q6H PRN PO PAIN LEVEL 1-3 OR FEVER; Start 10/27/16 at 19:00 Acetaminophen (Tylenol Supp) 650 mg Q6H PRN [place] PAIN LEVEL 1-3 OR FEVER; Start 10/27/16 at 19:00 Acetaminophen/ Hydrocodone Bitart 1 tab 1 tab Q6H PRN PO PAIN LEVEL 4-6; Start 10/27/16 at 19:00 Metronidazole (Flagyl 500 Mg (Pmx)) 100 ml @ 100 mls/hr Q8 IVPB Last administered on 10/30/16 05:50; Admin Dose 100 MLS/HR; Start 10/27/16 at 22:00 Albuterol (Ventolin Hfa) 2 puff BID PRN INH WHEEZING AND SOB; Start 10/27/16 at 19:00 Aspirin (Aspirin) 81 mg DAILY PO Last administered on 10/30/16 10:48; Admin Dose 81 MG; Start 10/28/16 at 09:00 Atorvastatin Calcium (Lipitor) 40 mg QHS PO Last administered on 10/29/16 21: 26; Admin Dose 40 MG; Start 10/27/16 at 21:00 Clobetasol Propionate (Temovate 0.05% Oint) 1 applic BID TOP Last administered on 10/30/16 10:49; Admin Dose 1 APPLIC; Start 10/27/16 at 21:00 Montelukast Sodium (Singulair) 10 mg HS PO Last administered on 10/29/16 21: 26; Admin Dose 10 MG; Start 10/27/16 at 21:00 Salmeterol Xinafoate/ Fluticasone 1 inh 1 inh BID PRN INH SHORTNESS OF BREATH; Start 10/29/16 at 10:30 Cefepime HCl (Maxipime 1gm/50 ml (Pmx)) 50 ml @ 100 mls/hr Q24H IVPB Last administered on 10/29/16at 16:00; Admin Dose 100 MLS/HR; Start 10/28/16 at 16: 00 Morphine Sulfate (Ms Contin (Er)) 15 mg BID PRN PO PAIN LEVEL 8-10 Last administered on 10/28/16at 16:23; Admin Dose 15 MG; Start 10/28/16 at 16:00 Theophylline (Ethan-24) 200 mg DAILY PO Last administered on 10/30/16 10:48; Admin Dose 200 MG; Start 10/29/16 at 09:00 Doxazosin Mesylate (Cardura) 2 mg HS PO ; Start 1/1/17 at 21:00 COLBY RODRIGUEZ NP Oct 30, 2016 11:08
[2016-10-30 12:06] LABS: AADO2 Arterial 101.7 mmHg (7.0-24.0); Allen Test ACCEPTAB; Arterial Base Excess 4.1 mmol/L (-3.0-3); Arterial COHb 0.3 % (0.0-3.0); Arterial HCO3 28.2 mmol/L (22.0-26.0); Arterial MetHb 0.1 % (0.0-1.5); Arterial Total Hemglobin 9.8 g/dl (12.0-18.0); MODE NASAL CANNULA
[2016-10-30] MEDS: morphine (ER) 15 MG TAB PO PRN ×2 (12:08→23:05)
--- NOTE | 2016-10-30 15:29 | CONS ---
Date/Time of Note Date/Time of Note DATE: 10/30/16 TIME: 15:28 Assessment/Plan Assessment/Plan Chief Complaint/Hosp Course IMPRESSION: 1. Ihjsg-[id number]-chhutiq kidney disease. 2. diarrhea+ 3. obesity 4. Underlying acute tubular necrosis. 5. Respiratory insufficiency. 6. Patient has intractable diarrhea. 7. Prerenal azotemia. 8. Chronic obstructive pulmonary disease. 9. History of hypertension. 10. Diabetes mellitus. 11. Possible underlying diabetic nephropathy. 12 hypernatremia plan mandeep ns Problems: Consultation Date/Type/Reason Admit Date/Time Oct 27, 2016 at 17:21 Type of Consultation: renal 24 HR Interval Summary Constitutional: other (diarrhea+) Exam/Review of Systems Vital Signs Vitals Vital Signs Date Time Temp Pulse Resp B/P Pulse Ox O2 Delivery O2 Flow Rate FiO2 10/30/16 13:29 98.5 111 24 161/89 94 Nasal Cannula 4.0 10/30/16 02:12 30 Intake and Output 10/29/16 10/29/16 10/30/16 15:00 23:00 07:00 Intake Total 1291 ml 1190 ml 1340 ml Output Total 2225 ml 1525 ml 1140 ml Balance -934 ml -335 ml 200 ml Exam Respiratory: clear to auscultation Cardiovascular: regular rate and rhythm Gastrointestinal: soft Musculoskeletal: nl extremities to inspection Extremities: normal pulses Results Result Diagram: 10/30/16 0422 10/30/16 0422 Results 24 hrs Laboratory Tests Test 10/30/16 04:22 10/30/16 09:00 Anion Gap 16 Basophils # 0.0 Basophils % 0.0 Blood Morphology Comment Blood Urea Nitrogen 51 #H Calcium Level 9.2 Carbon Dioxide Level 30 Chloride Level 108 Creatinine 1.05 # Eosinophils # 0.1 Eosinophils % 1.8 Glucose Level 126 Hematocrit 31.0 L Hemoglobin 9.5 L Lymphocytes # 0.7 L Lymphocytes % 8.6 L Magnesium Level 1.7 Mean Corpuscular Hemoglobin 22.3 L Mean Corpuscular Hemoglobin Concent 30.5 L Mean Corpuscular Volume 73.1 L Mean Platelet Volume 10.4 Monocytes # 1.0 H Monocytes % 12.7 H Neutrophils # 5.9 Neutrophils % 76.9 Nucleated Red Blood Cells # 0.0 Nucleated Red Blood Cells % 0.0 Platelet Count 163 # Potassium Level 4.4 Red Blood Count 4.24 L Red Cell Distribution Width 25.3 H Sodium Level 150 H White Blood Count 7.7 Arterial Blood HCO3 28.2 H Arterial Blood Base Excess 4.1 H Arterial Blood Oxygen Saturation 96.4 Osmel Test ACCEPTAB Arterial Blood Gas Puncture Site Right Radial Arterial Blood Carboxyhemoglobin 0.3 Arterial Blood Date Drawn 10/30/2016 11:55:59 AM Arterial Blood Methemoglobin 0.1 Arterial Blood pCO2 (Temp correct) 40.4 Arterial Blood pH (Temp corrected) 7.462 H Arterial Blood pO2 (Temp corrected) 86.4 Blood Gas A-a O2 Differential 101.7 H Blood Gas Modality NASAL CANNULA Blood Gas Notified Time 10/30/2016 12:06:34 PM Blood Gas Notified Whom AT Blood Gas Specimen Source Blood arterial Blood Gas Temperature 37.0 FiO2 33.0 Oxyhemoglobin Percent 96.0 Total Hemoglobin 9.8 L Medications Medications Current Medications Lorazepam (Ativan) 0.5 mg Q8H PRN PO ANXIETY; Start 10/27/16 at 19:00 Ondansetron HCl (Zofran Inj) 4 mg Q6H PRN IV NAUSEA AND/OR VOMITING; Start at 19:00 Nitroglycerin (Nitroglycerin (Sl Tab) 0.4 Mg) 1 tab Q5M PRN SL CHEST PAIN; Start 10/27/16 at 19:00 Acetaminophen (Tylenol Tab) 650 mg Q6H PRN PO PAIN LEVEL 1-3 OR FEVER; Start 10/27/16 at 19:00 Acetaminophen (Tylenol Supp) 650 mg Q6H PRN [place] PAIN LEVEL 1-3 OR FEVER; Start 10/27/16 at 19:00 Acetaminophen/ Hydrocodone Bitart 1 tab 1 tab Q6H PRN PO PAIN LEVEL 4-6; Start 10/27/16 at 19:00 Metronidazole (Flagyl 500 Mg (Pmx)) 100 ml @ 100 mls/hr Q8 IVPB Last administered on 10/30/16 05:50; Admin Dose 100 MLS/HR; Start 10/27/16 at 22:00 Albuterol (Ventolin Hfa) 2 puff BID PRN INH WHEEZING AND SOB; Start 10/27/16 at 19:00 Aspirin (Aspirin) 81 mg DAILY PO Last administered on 10/30/16 10:48; Admin Dose 81 MG; Start 10/28/16 at 09:00 Atorvastatin Calcium (Lipitor) 40 mg QHS PO Last administered on 10/29/16at 21: 26; Admin Dose 40 MG; Start 10/27/16 at 21:00 Clobetasol Propionate (Temovate 0.05% Oint) 1 applic BID TOP Last administered on 10/30/16 10:49; Admin Dose 1 APPLIC; Start 10/27/16 at 21:00 Montelukast Sodium (Singulair) 10 mg HS PO Last administered on 10/29/16at 21: 26; Admin Dose 10 MG; Start 10/27/16 at 21:00 Salmeterol Xinafoate/ Fluticasone (Advair 250/50 Diskus) 1 inh BID PRN INH SHORTNESS OF BREATH; Start 10/29/16 at 10:30 Morphine Sulfate (Ms Contin (Er)) 15 mg BID PRN PO PAIN LEVEL 8-10 Last administered on 10/30/16 12:08; Admin Dose 15 MG; Start 10/28/16 at 16:00 Theophylline (Ethan-24) 200 mg DAILY PO Last administered on 10/30/16 10:48; Admin Dose 200 MG; Start 10/29/16 at 09:00 Doxazosin Mesylate 2 mg 2 mg HS PO ; Start 10/30/16 at 21:00 Cefepime HCl (Maxipime 1gm/50 ml (Pmx)) 50 ml @ 100 mls/hr Q8 IVPB ; Start 10/30 at 13:00 PEPE WELSH MD Oct 30, 2016 15:29
[2016-10-30] MEDS: CEFEPIME 1GM/50 ML (PMX) 50 ML IVPB SCH ×2 (16:52→21:40)
[2016-10-30] MEDS: SOD CHLORIDE 0.45% 1,000 ML IV SCH (16:54)
[2016-10-30] MEDS ORDERED: morphine 2 MG INJ IV PRN (21:30)
[2016-10-30] MEDS: morphine 2 MG INJ IV PRN (21:36)
[2016-10-30] MEDS: ATORVASTATIN 40 MG TAB PO SCH (21:39)
[2016-10-30] MEDS: MONTELUKAST 10 MG TAB PO SCH (21:39)
[2016-10-30] MEDS: DOXAZOSIN 2 MG TAB PO SCH (21:39)
[2016-10-31 01:25] VITALS: PULSE 120
[2016-10-31 02:30] VITALS: PULSE 115
[2016-10-31] MEDS: morphine 2 MG INJ IV PRN (03:51)
[2016-10-31] MEDS ORDERED: BISMUTH SUBSALICYLATE 120 ML BTL PO ONE (05:30)
[2016-10-31] MEDS ORDERED: HYDROmorphONE 1 MG/ML SYG IV PRN (05:30)
[2016-10-31] MEDS: HYDROmorphONE 1 MG/ML SYG IV PRN ×4 (05:57→22:09)
[2016-10-31] MEDS: CEFEPIME 1GM/50 ML (PMX) 50 ML IVPB SCH (05:58)
[2016-10-31 07:11] LABS: POTASSIUM 4.3 mmol/L (3.5-5.1)
[2016-10-31 07:12] LABS: HEMATOCRIT 27.1 % (42.0-52.0); HEMOGLOBIN 8.4 g/dl (14.0-18.0); MEAN CORPUSCULAR HEMOGLOBIN 22.4 pg (29.0-33.0); MEAN CORPUSCULAR HGB CONC 30.9 g/dl (32.0-37.0); MEAN CORPUSCULAR VOLUME 72.4 fl (82.0-101.0); MEAN PLATELET VOLUME 9.9 fl (7.4-10.4); PLATELET COUNT 143 10^3/UL (140-440); RED BLOOD COUNT 3.74 10^6/ul (4.70-6.10); RED CELL DISTRIBUTION WIDTH 24.7 % (11.5-14.5); UNCORRECTED WBC 7.9 10^3/ul (4.8-10.8); WHITE BLOOD COUNT 7.9 10^3/ul (4.8-10.8)
[2016-10-31 07:14] LABS: CREATININE 0.89 mg/dl (0.61-1.24)
[2016-10-31 07:15] LABS: CALCIUM 8.6 mg/dl (8.4-10.2); MAGNESIUM 1.5 mg/dl (1.7-2.5)
[2016-10-31 07:20] LABS: CONDITION 1; LH ANALYZER COMMENTS 1
[2016-10-31] MEDS: metroNIDAZOLE 500 MG/NS (PMX) 100 ML IVPB SCH ×3 (07:31→21:14)
[2016-10-31] MEDS: ALBUTEROL/IPRATROPIUM (NEB) 3 ML AMP HHN SCH ×3 (07:37→19:46)
[2016-10-31 07:45] VITALS: BP 132/90; RESP 20
[2016-10-31] MEDS: SOD CHLORIDE 0.45% 1,000 ML IV SCH ×2 (08:10→18:16)
[2016-10-31] MEDS: CLOBETASOL 0.05% 15 GM OINT TOP SCH ×2 (10:15→21:14)
[2016-10-31] MEDS: ASPIRIN 81 MG TAB PO SCH (10:15)
[2016-10-31 10:40] LABS: LYMPHOCYTES # 1.1 10^3/ul (0.8-2.9); MONOCYTE # 1.1 10^3/ul (0.3-0.9); NEUTROPHIL # 5.7 10^3/ul (1.6-7.5)
[2016-10-31] MEDS: THEOPHYLLINE (SR) 200 MG CAPSR PO SCH (12:25)
--- NOTE | 2016-10-31 13:55 | PN ---
Date/Time of Note Date/Time of Note DATE: 10/31/16 TIME: 13:53 Assessment/Plan VTE Prophylaxis VTE Prophylaxis Intervention: other Lines/Catheters IV [facility] Type (from [facility]): Peripheral IV Urinary Cath still in place: Yes Reason Cath still needed: other (indicate) Assessment/Plan Chief Complaint/Hosp Course IMPRESSION: 1. Acute-renal failure 2. diarrhea+ 3. obesity 4. Underlying acute tubular necrosis. 5. Respiratory insufficiency. 6. Patient has intractable diarrhea. 7. Prerenal azotemia. 8. Chronic obstructive pulmonary disease. 9. History of hypertension. 10. Diabetes mellitus. 11. Possible underlying diabetic nephropathy. 12 hypernatremia better plan mandeep ns Problems: Subjective 24 Hr Interval Summary ENT: no complaints Respiratory: no complaints Gastrointestinal: No diarrhea Exam/Review of Systems Vital Signs Vitals Vital Signs Date Time Temp Pulse Resp B/P Pulse Ox O2 Delivery O2 Flow Rate FiO2 10/31/16 07:45 98.4 115 20 132/90 96 10/31/16 07:44 4.0 10/31/16 07:37 Nasal Cannula 10/31/16 02:30 40 Intake and Output 10/30/16 10/30/16 10/31/16 15:00 23:00 07:00 Intake Total 990 ml 920 ml 750 ml Output Total 750 ml 600 ml 300 ml Balance 240 ml 320 ml 450 ml Exam Neck: supple Respiratory: clear to auscultation Cardiovascular: regular rate and rhythm Gastrointestinal: soft Musculoskeletal: nl extremities to inspection Extremities: normal pulses Results Result Diagram: 10/31/16 0431 10/31/16 0431 Results 24 hrs Laboratory Tests Test 10/31/16 04:31 10/31/16 04:37 Anion Gap 13 Blood Morphology Comment Blood Urea Nitrogen 31 #H Calcium Level 8.6 Carbon Dioxide Level 29 Chloride Level 105 Creatinine 0.89 Glucose Level 111 Hematocrit 27.1 L Hemoglobin 8.4 L Large Platelets OCCASIONAL Lymphocytes # 1.1 Lymphocytes % 14.0 L Magnesium Level 1.5 L Mean Corpuscular Hemoglobin 22.4 L Mean Corpuscular Hemoglobin Concent 30.9 L Mean Corpuscular Volume 72.4 L Mean Platelet Volume 9.9 Monocytes # 1.1 H Monocytes % 14.0 H Neutrophils # 5.7 Neutrophils % 72.0 Nucleated Red Blood Cells # Platelet Count 143 Potassium Level 4.3 Red Blood Count 3.74 L Red Cell Distribution Width 24.7 H Sodium Level 143 White Blood Count 7.9 Prealbumin 18.2 Medications Medications Current Medications Lorazepam (Ativan) 0.5 mg Q8H PRN PO ANXIETY; Start 10/27/16 at 19:00 Ondansetron HCl (Zofran Inj) 4 mg Q6H PRN IV NAUSEA AND/OR VOMITING; Start at 19:00 Nitroglycerin (Nitroglycerin (Sl Tab) 0.4 Mg) 1 tab Q5M PRN SL CHEST PAIN; Start 10/27/16 at 19:00 Acetaminophen (Tylenol Tab) 650 mg Q6H PRN PO PAIN LEVEL 1-3 OR FEVER; Start 10/27/16 at 19:00 Acetaminophen 650 mg 650 mg Q6H PRN [place] PAIN LEVEL 1-3 OR FEVER; Start at 19:00 Metronidazole (Flagyl 500 Mg (Pmx)) 100 ml @ 100 mls/hr Q8 IVPB Last administered on 10/31/16 07:31; Admin Dose 100 MLS/HR; Start 10/27/16 at 22:00 Albuterol (Ventolin Hfa) 2 puff BID PRN INH WHEEZING AND SOB; Start 10/27/16 at 19:00 Aspirin (Aspirin) 81 mg DAILY PO Last administered on 10/31/16 10:15; Admin Dose 81 MG; Start 10/28/16 at 09:00 Atorvastatin Calcium (Lipitor) 40 mg QHS PO Last administered on 10/30/16 21:39 ; Admin Dose 40 MG; Start 10/27/16 at 21:00 Clobetasol Propionate (Temovate 0.05% Oint) 1 applic BID TOP Last administered on 10/31/16 10:15; Admin Dose 1 APPLIC; Start 10/27/16 at 21:00 Montelukast Sodium (Singulair) 10 mg HS PO Last administered on 10/30/16 21:39 ; Admin Dose 10 MG; Start 10/27/16 at 21:00 Salmeterol Xinafoate/ Fluticasone (Advair 250/50 Diskus) 1 inh BID PRN INH SHORTNESS OF BREATH; Start 10/29/16 at 10:30 Morphine Sulfate (Ms Contin (Er)) 15 mg BID PRN PO PAIN LEVEL 8-10 Last administered on 10/30/16 23:05; Admin Dose 15 MG; Start 10/28/16 at 16:00 Doxazosin Mesylate 2 mg 2 mg HS PO Last administered on 10/30/16 21:39; Admin Dose 2 MG; Start 10/30/16 at 21:00 Cefepime HCl 50 ml @ 100 mls/hr Q8 IVPB Last administered on 10/31/16 05:58; Admin Dose 100 MLS/HR; Start 10/30/16 at 13:00 Sodium Chloride (1/2 NS) 1,000 ml @ 60 mls/hr [id number] IV Last administered on 10/30/16 16:54; Admin Dose 60 MLS/HR; Start 10/30/16 at 15:30 Hydromorphone HCl (Dilaudid) 1 mg Q6H PRN IV PAIN Last administered on 12:26; Admin Dose 1 MG; Start 10/31/16 at 06:00 Theophylline (Ethan-24) 200 mg DAILY PO Last administered on 10/31/16 12:25; Admin Dose 200 MG; Start 10/31/16 at 12:00 PEPE WELSH MD Oct 31, 2016 13:55
--- NOTE | 2016-10-31 14:22 | CONS ---
Date/Time of Note Date/Time of Note DATE: 10/31/16 TIME: 14:20 Assessment/Plan Assessment/Plan Chief Complaint/Hosp Course ID PROGRESS NOTE TOTAL ABX DAY #5 : => Cefepime, Flagyl, Diflucan 24H INTERVAL SUMMARY * (+)Diarrhea -> pt was given Kayexalate == Will DC Cefepime today PHYSICAL EXAMINATION: [id number] yo M HEENT: Unremarkable NECK: Supple, trachea midline. CHEST: Rise symmetrical. HEART: Pulse RRR ABDOMEN: Soft, bowels diminished EXTREMITIES: Warm SKIN: Scrotal cellulitis/fungal ID ASSESSMENT: 51 yo M w/super morbid obesity [BMI >55] admit with: 1. Severe sepsis with shock 2nd 2#2= RESOLVING * No fevers, WBC normalized 2. Complicated GNR UTI = Proteus Mirabilis, low colony count on culture 3. Acute renal failure. 4. Acute hypoxic respiratory failure = RESOLVING 5. OMEGA w/Obesity hypoventilation syndrome => nocturnal BIPAP PRN 5. s/p HCAP onset prior admission = RESOLVING * s/p ETT/Vent recent prior admission * (+)Risk factors for silent Aspiration syndrome = Morbid obese, GERD, BIPAP = suspect Aspiration Pneumonitis without evidence of full-blown PNA 6. Anemia. 7. Diarrhea => intermittent w/norah excoriation 8. Scrotal cellulitis / Fungal excoriation. 9. HTN 10. Right adrenal adenoma, 2.[address] 2014 11. History of coagulase-negative Staphylococcus bacteremia on previous admission, 10/05/2016, as well as Enterococcal urinary tract infection. (-)MRSA Nares Screen = 10/05/16 CURRENT ABX: => Flagyl, Diflucan Cefepime-> DC 10/31/16 ID RECOMMENDATIONS/PLAN: 1. DC Cefepime and observe 2. Topical anti-fungal to norah-scrotal excoriation . Problems: Consultation Date/Type/Reason Admit Date/Time Oct 27, 2016 at 17:21 Type of Consultation: ID Exam/Review of Systems Vital Signs Vitals Vital Signs Date Time Temp Pulse Resp B/P Pulse Ox O2 Delivery O2 Flow Rate FiO2 10/31/16 07:45 98.4 115 20 132/90 96 10/31/16 07:44 4.0 10/31/16 07:37 Nasal Cannula 10/31/16 02:30 40 Intake and Output 10/30/16 10/30/16 10/31/16 15:00 23:00 07:00 Intake Total 990 ml 920 ml 750 ml Output Total 750 ml 600 ml 300 ml Balance 240 ml 320 ml 450 ml Results Result Diagram: 10/31/16 0431 10/31/16 0431 Results 24 hrs Laboratory Tests Test 10/31/16 04:31 10/31/16 04:37 Anion Gap 13 Blood Morphology Comment Blood Urea Nitrogen 31 #H Calcium Level 8.6 Carbon Dioxide Level 29 Chloride Level 105 Creatinine 0.89 Glucose Level 111 Hematocrit 27.1 L Hemoglobin 8.4 L Large Platelets OCCASIONAL Lymphocytes # 1.1 Lymphocytes % 14.0 L Magnesium Level 1.5 L Mean Corpuscular Hemoglobin 22.4 L Mean Corpuscular Hemoglobin Concent 30.9 L Mean Corpuscular Volume 72.4 L Mean Platelet Volume 9.9 Monocytes # 1.1 H Monocytes % 14.0 H Neutrophils # 5.7 Neutrophils % 72.0 Nucleated Red Blood Cells # Platelet Count 143 Potassium Level 4.3 Red Blood Count 3.74 L Red Cell Distribution Width 24.7 H Sodium Level 143 White Blood Count 7.9 Prealbumin 18.2 Medications Medications Current Medications Lorazepam (Ativan) 0.5 mg Q8H PRN PO ANXIETY; Start 10/27/16 at 19:00 Ondansetron HCl (Zofran Inj) 4 mg Q6H PRN IV NAUSEA AND/OR VOMITING; Start at 19:00 Nitroglycerin (Nitroglycerin (Sl Tab) 0.4 Mg) 1 tab Q5M PRN SL CHEST PAIN; Start 10/27/16 at 19:00 Acetaminophen (Tylenol Tab) 650 mg Q6H PRN PO PAIN LEVEL 1-3 OR FEVER; Start 10/27/16 at 19:00 Acetaminophen 650 mg 650 mg Q6H PRN [place] PAIN LEVEL 1-3 OR FEVER; Start at 19:00 Metronidazole (Flagyl 500 Mg (Pmx)) 100 ml @ 100 mls/hr Q8 IVPB Last administered on 10/31/16t 07:31; Admin Dose 100 MLS/HR; Start 10/27/16 at 22:00 Albuterol (Ventolin Hfa) 2 puff BID PRN INH WHEEZING AND SOB; Start 10/27/16 at 19:00 Aspirin (Aspirin) 81 mg DAILY PO Last administered on 10/31/16 10:15; Admin Dose 81 MG; Start 10/28/16 at 09:00 Atorvastatin Calcium (Lipitor) 40 mg QHS PO Last administered on 10/30/16 21:39 ; Admin Dose 40 MG; Start 10/27/16 at 21:00 Clobetasol Propionate (Temovate 0.05% Oint) 1 applic BID TOP Last administered on 10/31/16 10:15; Admin Dose 1 APPLIC; Start 10/27/16 at 21:00 Montelukast Sodium (Singulair) 10 mg HS PO Last administered on 10/30/16 21:39 ; Admin Dose 10 MG; Start 10/27/16 at 21:00 Salmeterol Xinafoate/ Fluticasone (Advair 250/50 Diskus) 1 inh BID PRN INH SHORTNESS OF BREATH; Start 10/29/16 at 10:30 Morphine Sulfate (Ms Contin (Er)) 15 mg BID PRN PO PAIN LEVEL 8-10 Last administered on 10/30/16 23:05; Admin Dose 15 MG; Start 10/28/16 at 16:00 Doxazosin Mesylate 2 mg 2 mg HS PO Last administered on 10/30/16 21:39; Admin Dose 2 MG; Start 10/30/16 at 21:00 Cefepime HCl 50 ml @ 100 mls/hr Q8 IVPB Last administered on 10/31/16 05:58; Admin Dose 100 MLS/HR; Start 10/30/16 at 13:00 Sodium Chloride (1/2 NS) 1,000 ml @ 60 mls/hr [id number] IV Last administered on 10/30/16 16:54; Admin Dose 60 MLS/HR; Start 10/30/16 at 15:30 Hydromorphone HCl (Dilaudid) 1 mg Q6H PRN IV PAIN Last administered on 12:26; Admin Dose 1 MG; Start 10/31/16 at 06:00 Theophylline (Ethan-24) 200 mg DAILY PO Last administered on 10/31/16 12:25; Admin Dose 200 MG; Start 10/31/16 at 12:00 COLBY RODRIGUEZ NP Oct 31, 2016 14:22
[2016-10-31] MEDS: morphine (ER) 15 MG TAB PO PRN (14:35)
--- NOTE | 2016-10-31 14:57 | PN ---
Date/Time of Note Date/Time of Note DATE: 10/31/16 TIME: 14:56 Assessment/Plan VTE Prophylaxis VTE Prophylaxis Intervention: SCD's Lines/Catheters IV Catheter Type (from Nrs): Peripheral IV Urinary Cath still in place: Yes Reason Cath still needed: other (indicate) Assessment/Plan Assessment/Plan 1. Acute renal insufficiency. resolved 2. Intractable diarrhea. Resolved, continue Flagyl 3. Anemia of chronic disease. This may be secondary to renal insufficiency. Continue to monitor 4. Leukocytosis. resolved 5. s/p Sepsis with Severe hypotension. This was likely secondary to severe dehydration.resolved 6. Chronic obstructive pulmonary disease, cont oxygen. Continue breathing treatment. PRN steroid 7. Diabetes mellitus. cont current mgmt. adjust as needed 8. Morbid Obesity with BMI of 55: weight loss advised. Cont PT 9. UTI: cx with proteus: cont abx Subjective 24 Hr Interval Summary Free Text/Dictation no acute events overnight. c/o generalized pain Exam/Review of Systems Vital Signs Vitals Vital Signs Date Time Temp Pulse Resp B/P Pulse Ox O2 Delivery O2 Flow Rate FiO2 10/31/16 14:51 4.0 10/31/16 14:51 115 20 96 Nasal Cannula 10/31/16 07:45 98.4 132/90 10/31/16 02:30 40 Intake and Output 10/30/16 10/30/16 10/31/16 15:00 23:00 07:00 Intake Total 990 ml 920 ml 750 ml Output Total 750 ml 600 ml 300 ml Balance 240 ml 320 ml 450 ml Exam General: The patient is morbidly obese with BMI of 55, Not in acute distress. HEENT: Atraumatic, normocephalic. The pupils are equal and round . Neck: Supple with full range of motion. Chest: Normal expansion of the thorax during inspiration Lungs: Clear to auscultation bilaterally Heart: Normal S1-S2, Regular rhythm and rate. Abdomen: Soft , nontender, nondistended , bowel sounds are present. Extremities: Normal to inspection, no edema no cyanosis Neurologic: Normal mental status,The patient is awake, alert and oriented . Genitourinary: Cornejo in place Results Result Diagram: 10/31/16 0431 10/31/16 0431 Results 24 hrs Laboratory Tests Test 10/31/16 04:31 10/31/16 04:37 Anion Gap 13 Blood Morphology Comment Blood Urea Nitrogen 31 #H Calcium Level 8.6 Carbon Dioxide Level 29 Chloride Level 105 Creatinine 0.89 Glucose Level 111 Hematocrit 27.1 L Hemoglobin 8.4 L Large Platelets OCCASIONAL Lymphocytes # 1.1 Lymphocytes % 14.0 L Magnesium Level 1.5 L Mean Corpuscular Hemoglobin 22.4 L Mean Corpuscular Hemoglobin Concent 30.9 L Mean Corpuscular Volume 72.4 L Mean Platelet Volume 9.9 Monocytes # 1.1 H Monocytes % 14.0 H Neutrophils # 5.7 Neutrophils % 72.0 Nucleated Red Blood Cells # Platelet Count 143 Potassium Level 4.3 Red Blood Count 3.74 L Red Cell Distribution Width 24.7 H Sodium Level 143 White Blood Count 7.9 Prealbumin 18.2 Medications Medications Current Medications Lorazepam (Ativan) 0.5 mg Q8H PRN PO ANXIETY; Start 10/27/16 at 19:00 Ondansetron HCl (Zofran Inj) 4 mg Q6H PRN IV NAUSEA AND/OR VOMITING; Start at 19:00 Nitroglycerin (Nitroglycerin (Sl Tab) 0.4 Mg) 1 tab Q5M PRN SL CHEST PAIN; Start 10/27/16 at 19:00 Acetaminophen (Tylenol Tab) 650 mg Q6H PRN PO PAIN LEVEL 1-3 OR FEVER; Start 10/27/16 at 19:00 Acetaminophen 650 mg 650 mg Q6H PRN [place] PAIN LEVEL 1-3 OR FEVER; Start at 19:00 Metronidazole (Flagyl 500 Mg (Pmx)) 100 ml @ 100 mls/hr Q8 IVPB Last administered on 10/31/16 14:35; Admin Dose 100 MLS/HR; Start 10/27/16 at 22:00 Albuterol (Ventolin Hfa) 2 puff BID PRN INH WHEEZING AND SOB; Start 10/27/16 at 19:00 Aspirin (Aspirin) 81 mg DAILY PO Last administered on 10/31/16 10:15; Admin Dose 81 MG; Start 10/28/16 at 09:00 Atorvastatin Calcium (Lipitor) 40 mg QHS PO Last administered on 10/30/16 21:39 ; Admin Dose 40 MG; Start 10/27/16 at 21:00 Clobetasol Propionate (Temovate 0.05% Oint) 1 applic BID TOP Last administered on 10/31/16 10:15; Admin Dose 1 APPLIC; Start 10/27/16 at 21:00 Montelukast Sodium (Singulair) 10 mg HS PO Last administered on 10/30/16 21:39 ; Admin Dose 10 MG; Start 10/27/16 at 21:00 Salmeterol Xinafoate/ Fluticasone (Advair 250/50 Diskus) 1 inh BID PRN INH SHORTNESS OF BREATH; Start 10/29/16 at 10:30 Morphine Sulfate (Ms Contin (Er)) 15 mg BID PRN PO PAIN LEVEL 8-10 Last administered on 10/31/16 14:35; Admin Dose 15 MG; Start 10/28/16 at 16:00 Doxazosin Mesylate 2 mg 2 mg HS PO Last administered on 10/30/16 21:39; Admin Dose 2 MG; Start 10/30/16 at 21:00 Sodium Chloride (1/2 NS) 1,000 ml @ 60 mls/hr [id number] IV Last administered on 10/30/16 16:54; Admin Dose 60 MLS/HR; Start 10/30/16 at 15:30 Hydromorphone HCl (Dilaudid) 1 mg Q6H PRN IV PAIN Last administered on 12:26; Admin Dose 1 MG; Start 10/31/16 at 06:00 Theophylline (Ethan-24) 200 mg DAILY PO Last administered on 10/31/16 12:25; Admin Dose 200 MG; Start 10/31/16 at 12:00 HERI WILSON MD Oct 31, 2016 14:57 10/30/16 16:54; Admin Dose 60 MLS/HR; Start 10/30/16 at 15:30 Hydromorphone HCl (Dilaudid) 1 mg Q6H PRN IV PAIN Last administered on 12:26; Admin Dose 1 MG; Start 10/31/16 at 06:00 Theophylline (Ethan-24) 200 mg DAILY PO Last administered on 10/31/16 12:25; Admin Dose 200 MG; Start 10/31/16 at 12:00 HERI WILSON MD Oct 31, 2016 14:57
[2016-10-31 20:07] VITALS: BP 136/71; RESP 18
[2016-10-31] MEDS: DOXAZOSIN 2 MG TAB PO SCH (21:14)
[2016-10-31] MEDS: MONTELUKAST 10 MG TAB PO SCH (21:14)
[2016-10-31] MEDS: ATORVASTATIN 40 MG TAB PO SCH (21:14)
[2016-11-01] MEDS: SOD CHLORIDE 0.45% 1,000 ML IV SCH ×2 (00:50→14:05)
[2016-11-01] MEDS: ALBUTEROL/IPRATROPIUM (NEB) 3 ML AMP HHN SCH ×4 (01:29→19:28)
[2016-11-01] MEDS: HYDROmorphONE 1 MG/ML SYG IV PRN ×5 (01:50→19:15)
[2016-11-01 02:00] VITALS: PULSE 124
[2016-11-01] MEDS: morphine (ER) 15 MG TAB PO PRN (03:19)
[2016-11-01] MEDS: metroNIDAZOLE 500 MG/NS (PMX) 100 ML IVPB SCH ×2 (06:04→14:01)
[2016-11-01 06:54] LABS: HEMATOCRIT 26.7 % (42.0-52.0); HEMOGLOBIN 8.3 g/dl (14.0-18.0); MEAN CORPUSCULAR HEMOGLOBIN 22.8 pg (29.0-33.0); MEAN CORPUSCULAR HGB CONC 31.2 g/dl (32.0-37.0); MEAN PLATELET VOLUME 8.7 fl (7.4-10.4); PLATELET COUNT 133 10^3/UL (140-440); RED BLOOD COUNT 3.66 10^6/ul (4.70-6.10); RED CELL DISTRIBUTION WIDTH 24.7 % (11.5-14.5); UNCORRECTED WBC 8.3 10^3/ul (4.8-10.8); WHITE BLOOD COUNT 8.3 10^3/ul (4.8-10.8)
[2016-11-01 06:59] LABS: CONDITION 1; LH ANALYZER COMMENTS 1
[2016-11-01 07:28] LABS: POTASSIUM 4.4 mmol/L (3.5-5.1)
[2016-11-01 07:31] LABS: CREATININE 0.71 mg/dl (0.61-1.24)
[2016-11-01 07:32] LABS: CALCIUM 8.5 mg/dl (8.4-10.2); MAGNESIUM 1.3 mg/dl (1.7-2.5)
[2016-11-01 07:40] VITALS: BP 134/72; RESP 18
[2016-11-01] MEDS: THEOPHYLLINE (SR) 200 MG CAPSR PO SCH (08:33)
[2016-11-01] MEDS: ASPIRIN 81 MG TAB PO SCH (08:33)
[2016-11-01] MEDS: CLOBETASOL 0.05% 15 GM OINT TOP SCH (08:34)
[2016-11-01 10:34] LABS: ANISOCYTOSIS 3+; EOSINOPHILS # 0.1 10^3/ul (0.0-0.5); HYPOCHROMASIA 3+; LYMPHOCYTES # 1.1 10^3/ul (0.8-2.9); MICROCYTOSIS 2+; MONOCYTE # 0.3 10^3/ul (0.3-0.9); NEUTROPHIL # 6.6 10^3/ul (1.6-7.5)
[2016-11-01 10:35] LABS: PLATELET ESTIMATE PLT APPEAR DECREASED
[2016-11-01] MEDS ORDERED: FLUCONAZOLE 100 MG TAB PO SCH (12:00)
[2016-11-01] MEDS ORDERED: FLUCONAZOLE 100 MG TAB PO ONE (12:00)
--- NOTE | 2016-11-01 12:34 | PN ---
DATE: 11/01/2016 INFECTIOUS DISEASE PROGRESS NOTE SUBJECTIVE: No acute changes overnight. The patient is alert, feels good, wants to go home. No fe vers overnight. LABORATORY DATA: WBC today 8.3, platelets 133, neutrophils 80, bands 1, lymphs 13, monos 4. BUN 15, creatinine 0.71. MICROBIOLOGY: Blood culture since admission negative. Urine culture grew Proteus mirabilis suscept ible to Levaquin. Stool for C diff came back negative. ANTIMICROBIALS: The patient is on Flagyl for diarrhea. INDWELLINGS: Peripheral IV. PHYSICAL EXAMINATION: GENERAL: Morbidly obese, middle-aged man who is in no distress. HEENT: Head atraumatic, normocephalic. Sclerae anicteric. Buccal mucosa pink. NECK: Obese, trachea midline. CHEST: Rise symmetrical. Breath sounds clear, diminished to bases. HEART: S1, S2. ABDOMEN: Soft, obese. Bowel sounds present. EXTREMITIES: Without cyanosis. SKIN: No jaundice, no cyanosis. The patient has fungal excoriation in skin folds and scrotal area. ASSESSMENT 1. Status post severe sepsis with shock. 2. Status post urinary tract infection. 3. Fungal excoriation. 4. Morbid obesity. 5. Diarrhea, negative stool for Clostridium difficile, remains on empiric Flagyl. 6. Hypertension. 7. History of healthcare-associated pneumonia requiring intubation on previous admission. PLAN: The patient remains stable. We will continue him on oral Flagyl for persistent diarrhea. St art fluconazole. Continue topical nystatin. Local wound care. Dictated By: CHEY HUYNH DE [employer] for [employer] DIEGO/RAFAT Conf#: [id number] DID#: [id number]
[2016-11-01] MEDS ORDERED: MAGNESIUM SULFATE 2 GM/50 ML 50 ML IVPB STA (15:04)
[2016-11-01] MEDS ORDERED: [UNRECOGNIZED DRUG - CODE] PO (15:20)
[2016-11-01] MEDS ORDERED: DOXA2TAB61 PO (15:20)
[2016-11-01] MEDS ORDERED: MAGN400T28 PO (15:20)
[2016-11-01] MEDS ORDERED: METR500T PO (15:20)
[2016-11-01] MEDS ORDERED: FLUC100T39 PO (15:20)
[2016-11-01] MEDS ORDERED: CIPR500T4 PO (15:20)
[2016-11-01] MEDS ORDERED: ULT50 PO (15:20)
--- NOTE | 2016-11-01 15:23 | PDOCDIS ---
Discharge Instructions CONDITION Patient Condition: Stable HOME CARE INSTRUCTIONS: Diet Instructions: Low Fat /Cholesterol ACTIVITY: Activity Restrictions: Special Program Special Exercises FOLLOW UP/APPOINTMENTS Appointments FOLLOW-UP WITH PRIMARY CARE DOCTOR OTHER ORDERS: Other Orders: Call 911 or go to the nearest ER if you develop chest pain, shortness of breath , fever, chills, diarrhea HERI WILSON MD Nov 01, 2016 15:22
[2016-11-01] MEDS ORDERED: MAGNESIUM OXIDE 400 MG TAB PO ONE (15:30)
--- NOTE | 2016-11-01 17:06 | CONS ---
Date/Time of Note Date/Time of Note DATE: 11/01/16 TIME: 17:05 Assessment/Plan Assessment/Plan Chief Complaint/Hosp Course IMPRESSION: 1. Acute-renal failure better 2. diarrhea+ 3. obesity 4. Underlying acute tubular necrosis.better 5. Respiratory insufficiency. 6. Patient has intractable diarrhea.better 7. Prerenal azotemia.better 8. Chronic obstructive pulmonary disease. 9. History of hypertension. 10. Diabetes mellitus. 11. Possible underlying diabetic nephropathy. 12 hypernatremia better plan mg replacement Problems: Consultation Date/Type/Reason Admit Date/Time Oct 27, 2016 at 17:21 Type of Consultation: renal 24 HR Interval Summary Constitutional: no complaints Exam/Review of Systems Vital Signs Vitals Vital Signs Date Time Temp Pulse Resp B/P Pulse Ox O2 Delivery O2 Flow Rate FiO2 11/01/16 14:21 4.0 11/01/16 14:20 106 20 95 Nasal Cannula 11/01/16 07:40 98.5 134/72 11/01/16 02:00 40 Intake and Output 10/31/16 10/31/16 11/01/16 15:00 23:00 07:00 Intake Total 750 ml 2020 ml 940 ml Output Total 1100 ml 1100 ml Balance 750 ml 920 ml -160 ml Exam Neck: supple Respiratory: clear to auscultation Cardiovascular: regular rate and rhythm Gastrointestinal: soft Musculoskeletal: nl extremities to inspection Results Result Diagram: 11/01/16 0634 11/01/16 0634 Results 24 hrs Laboratory Tests Test 11/01/16 06:34 Anion Gap 15 Anisocytosis 3+ Band Neutrophils % 1.0 Blood Morphology Comment Blood Urea Nitrogen 15 # Calcium Level 8.5 Carbon Dioxide Level 28 Chloride Level 101 Creatinine 0.71 Eosinophils # 0.1 Eosinophils % 1.0 Glucose Level 102 Hematocrit 26.7 L Hemoglobin 8.3 L Hypochromasia 3+ Lymphocytes # 1.1 Lymphocytes % 13.0 L Magnesium Level 1.3 L Mean Corpuscular Hemoglobin 22.8 L Mean Corpuscular Hemoglobin Concent 31.2 L Mean Corpuscular Volume 73.0 L Mean Platelet Volume 8.7 Metamyelocytes # 0.1 Metamyelocytes % 1.0 H Microcytosis 2+ Monocytes # 0.3 Monocytes % 4.0 Neutrophils # 6.6 Neutrophils % 80.0 H Platelet Count 133 L Platelet Estimate PLT APPEAR DECREASED Potassium Level 4.4 Red Blood Count 3.66 L Red Cell Distribution Width 24.7 H Sodium Level 140 White Blood Count 8.3 Medications Medications Current Medications Lorazepam (Ativan) 0.5 mg Q8H PRN PO ANXIETY; Start 10/27/16 at 19:00 Ondansetron HCl (Zofran Inj) 4 mg Q6H PRN IV NAUSEA AND/OR VOMITING; Start at 19:00 Nitroglycerin (Nitroglycerin (Sl Tab) 0.4 Mg) 1 tab Q5M PRN SL CHEST PAIN; Start 10/27/16 at 19:00 Acetaminophen (Tylenol Tab) 650 mg Q6H PRN PO PAIN LEVEL 1-3 OR FEVER; Start 10/27/16 at 19:00 Acetaminophen 650 mg 650 mg Q6H PRN TN PAIN LEVEL 1-3 OR FEVER; Start at 19:00 Metronidazole (Flagyl 500 Mg (Pmx)) 100 ml @ 100 mls/hr Q8 IVPB Last administered on 11/01/16 14:01; Admin Dose 100 MLS/HR; Start 10/27/16 at 22:00 Albuterol (Ventolin Hfa) 2 puff BID PRN INH WHEEZING AND SOB; Start 10/27/16 at 19:00 Aspirin (Aspirin) 81 mg DAILY PO Last administered on 11/01/16 08:33; Admin Dose 81 MG; Start 10/28/16 at 09:00 Atorvastatin Calcium (Lipitor) 40 mg QHS PO Last administered on 10/31/16 21:14 ; Admin Dose 40 MG; Start 10/27/16 at 21:00 Clobetasol Propionate (Temovate 0.05% Oint) 1 applic BID TOP Last administered on 10/31/16 21:14; Admin Dose 1 APPLIC; Start 10/27/16 at 21:00 Montelukast Sodium (Singulair) 10 mg HS PO Last administered on 10/31/16 21:14 ; Admin Dose 10 MG; Start 10/27/16 at 21:00 Salmeterol Xinafoate/ Fluticasone (Advair 250/50 Diskus) 1 inh BID PRN INH SHORTNESS OF BREATH; Start 10/29/16 at 10:30 Morphine Sulfate (Ms Contin (Er)) 15 mg BID PRN PO PAIN LEVEL 8-10 Last administered on 11/01/16 03:19; Admin Dose 15 MG; Start 10/28/16 at 16:00 Doxazosin Mesylate 2 mg 2 mg HS PO Last administered on 10/31/16 21:14; Admin Dose 2 MG; Start 10/30/16 at 21:00 Sodium Chloride (1/2 NS) 1,000 ml @ 60 mls/hr [id number] IV Last administered on 11/01/16 14:05; Admin Dose 60 MLS/HR; Start 10/30/16 at 15:30 Hydromorphone HCl (Dilaudid) 1 mg Q6H PRN IV PAIN Last administered on 12:26; Admin Dose 1 MG; Start 10/31/16 at 06:00 Theophylline (Ethan-24) 200 mg DAILY PO Last administered on 11/01/16 08:33; Admin Dose 200 MG; Start 10/31/16 at 12:00 Hydromorphone HCl (Dilaudid) 1 mg Q4H PRN IV PAIN Last administered on 15:08; Admin Dose 1 MG; Start 10/31/16 at 16:00 Fluconazole (Diflucan) 100 mg DAILY PO Last administered on 11/01/16 14:01; Admin Dose 100 MG; Start 11/01/16 at 12:00 PEPE WELSH MD Nov 01, 2016 17:06
== END 2016-11-01 20:50 | disposition home health service (06) | DRG 871 ==
LOC: E/R 14:54 → ICU 17:21 → MS2 10-30 12:39
PROVIDERS: ADMIT Family Medicine; ATTEND Family Medicine
PROC: 5A09457 Assistance with Respiratory Ventilation, 24-96 Consecutive Hours, Continuous Positive Airway Pressure (ICD-10-PCS; principal; 2016-10-27)
DX: A41.59 Other Gram-negative sepsis (principal); R65.21 Severe sepsis with septic shock; N17.0 Acute kidney failure with tubular necrosis; Z68.43 Body mass index [BMI] 50.0-59.9, adult; I95.89 Other hypotension; E87.5 Hyperkalemia; N17.9 Acute kidney failure, unspecified; N30.00 Acute cystitis without hematuria; N39.0 Urinary tract infection, site not specified; J44.9 Chronic obstructive pulmonary disease, unspecified; E66.01 Morbid (severe) obesity due to excess calories; Z71.3 Dietary counseling and surveillance; G47.33 Obstructive sleep apnea (adult) (pediatric); E11.9 Type 2 diabetes mellitus without complications; B96.4 Proteus (mirabilis) (morganii) as the cause of diseases classified elsewhere; E86.0 Dehydration; Z87.898 Personal history of other specified conditions; Z86.711 Personal history of pulmonary embolism; D64.9 Anemia, unspecified; E78.5 Hyperlipidemia, unspecified
CPT/HCPCS: 36415; 36600; 71010; 80048; 80053; 80076; 81001; 81003; 82530; 82550; 82553; 82728; 82803; 83540; 83605; 83735; 84134; 84484; 85025; 85610; 85730; 86706; 86803; 87040; 87045; 87075; 87081; 87086; 87340; 93005; 94640; 94660; 94664; 96365; 96366; 96367; 96375; 96376; 97162; J0692; J0696; J1170; J2270; J2405; J3370; J3475; J7030